=== PATIENT | female | born 1955 | race Caucasian/White ===

== ENCOUNTER → 2020-01-01 13:18 | Outpatient (BNVA) | payer MEDICARE, SELFPAY | PROVIDERS: Family Provider Emergency Medicine; PCP Family Medicine; Visit Provider Specialist | DX: S82.132A Displaced fracture of medial condyle of left tibia, initial encounter for closed fracture (principal); Z46.89 Encounter for fitting and adjustment of other specified devices; S82.142D Displaced bicondylar fracture of left tibia, subsequent encounter for closed fracture with routine healing; X58.XXXD Exposure to other specified factors, subsequent encounter | CPT/HCPCS: 73562; 87635; 97760; L1832 ==

== ENCOUNTER 2020-01-01 15:55 | Outpatient (CLI) | payer MEDICARE, SELFPAY | END 2020-01-01 15:56 | disposition home or self-care (01) | LOC: SPT 15:55 | PROVIDERS: Family Provider Emergency Medicine; PCP Family Medicine; Visit Provider Specialist | DX: Z46.89 Encounter for fitting and adjustment of other specified devices (principal); S82.142D Displaced bicondylar fracture of left tibia, subsequent encounter for closed fracture with routine healing; X58.XXXD Exposure to other specified factors, subsequent encounter | CPT/HCPCS: 87635; 97760; L1832 ==

== ENCOUNTER 2020-01-06 11:18 | Inpatient (IN) | payer MEDICARE, OTHER, SELFPAY ==
[2020-01-05 13:18] VITALS: BMI 29.7
[2020-01-06] VITALS (15 sets, daily range): BP systolic 134–197; BP diastolic 69–92; PULSE 60–86; RESP 14–21; TEMP 36.4–37.1; O2SAT 92–100
--- NOTE | 2020-01-06 | SCC_ITS ---
Procedure Done: Open reduction internal fixation left tibial plateau fracture utilizing the [place] 2 hole proximal lateral plate for a tibial plateau fracture supplemented with Hydroset, 15 cc 223.9 seconds of fluoroscopic guidance, for a cumulative dose of 9.37 mGy, was provided to Dr. Malik by the radiology department. C-arm images of the LEFT knee were saved for the patient's permanent record. [facility]
--- NOTE | 2020-01-06 | XR_ITS ---
WS: [id number] INTRAOPERATIVE TECHNIQUE: 3 Spot fluoroscopic images for intraoperative purposes. FLUOROSCOPY TIME: 223.9 seconds CLINICAL INFORMATION: SELAM PICS FINDINGS: Intraoperative changes plate and screw fixation involving the proximal tibia. Hardware appears in goo d position. Normal alignment. XR/XR knee LT 1-2V 38670 IMPRESSION: Images obtained for intraoperative purposes.
--- NOTE | 2020-01-06 11:54 | P.HPUD_ITS ---
Surgery/Procedure H&P Update DATE OF PROCEDURE: January 06, 2020 DATE H&P PERFORMED: 01/01/20 H&P UPDATE INFORMATION: I have reviewed H&P completed within last 30 days, I have examined patient prior to procedure, No changes to prior documentation and H&P is in [facility] EMR on date indicated PREOP DIAGNOSIS: Left tibial plateau fracture PLANNED PROCEDURE: Operation Date: 01/06/20 12:45 Proposed Procedures p ORIF Tibial Plateau 18409 S82.142A(Left) - La Malik MD Related Problem List Diagnoses (1) Tibial plateau fracture, left: Qualifiers: Encounter type: initial encounter Fracture type: closed Qualified Code(s): S82.142A - Displaced bicondylar fracture of left tibia, initial encounter for closed fracture
[2020-01-06] MEDS: CELEcoxib 200 mg Capsule 400 MG PO (12:06)
[2020-01-06] MEDS: sodium chloride 0.9% 1,000 ML 30 ML IV (12:07)
[2020-01-06 12:15] LABS: Glucose Point of Care 128 mg/dL (70-110)
--- NOTE | 2020-01-06 12:32 | ANES.PREANE2 ---
Pre-Anesthetic Assessment Pre-Anesthetic Assessment: Height/Weight: Height 1.52 m Weight 68.946 kg Temp Pulse Resp BP Pulse Ox 98.5 F 63 20 H 197/92 98 01/06/20 11:37 01/06/20 11:37 01/06/20 11:37 01/06/20 11:37 01/06/20 11:37 Preop Diagnosis: Left tibial plateau fracture Proposed Procedure: Operation Date: 01/06/20 12:45 Proposed Procedures p ORIF Tibial Plateau 48646 S82.142A(Left) - La Malik MD Familial anesthetic complications: none Was Beta Matias taken within 24 hours: Yes Last intake: Intake Last Liquid Date 01/06/20 Last Liquid Time 08:00 Last Solid Date 01/05/20 Last Solid Time 21:30 Social: Social History: No alcohol and No tobacco Exam: Pre-Anes Outpt Exam: alert, oriented x 3, clear to auscultation bilaterally and regular rate & rhythm Airway: Cervical ROM: WNL MP: 4 Dentition: Other (missing teeth) CV/HEM: CV/HEM: HTN Metabolic: Metabolic: DM and Hyperlipidemia Anesthetic Plan: ASA status: 2 Anesthesia: General and Regional (specify below) Risk of > 500 ml blood loss (7ml/kg in children): No Meds/Allergies Current Medications: Current Medications Generic Name Dose Route Start Last Admin Trade Name Freq PRN Reason Stop Dose Admin Sodium Chloride 1,000 mls @ 30 ml s/hr 01/06/20 11:30 01/06/20 12:07 Sodium Chloride 0.9% IV 01/07/20 11:29 30 mls/hr .Q24H JONH Administration Data Anesthesia Other Labs: Laboratory Results - last 48 hr 01/06/20 12:11 POC Glucose 128 Cardiac Studies: No Data to Display
[2020-01-06 12:45] LABS: Add Urine Microscopic? NO
[2020-01-06] MEDS: midazolam 1 mg/mL INJ 2 mL 2 MG IVP (12:47)
[2020-01-06 12:51] LABS: Basophils # 0.1 10^3/uL (0.0-0.1); Basophils % 0.8 %; Eosinophils # 0.2 10^3/uL (0.0-0.8); Eosinophils % 1.8 %; Hematocrit 35.8 % (37.0-47.0); Hemoglobin 11.4 g/dL (11.5-15.3); Lymphocytes # 2.1 10^3/uL (0.8-4.8); Lymphocytes % 17.8 %; Mean Corpuscular HGB Conc 31.8 g/dL (30.0-36.0); Mean Corpuscular Hemoglobin 30.7 pg (28.0-34.0); Mean Corpuscular Volume 96.5 fL (81-99); Mean Platelet Volume 10.4 fL (7.4-10.4); Monocytes % 8.2 %; Neutrophils # 8.24 10^3/uL (1.8-7.7); Neutrophils % 70.6 %; Nucleated Red Blood Cells % 0 %; Platelet Count 440 10^3/cmm (130-400); Red Blood Count 3.71 10^6/uL (4.1-5.3); Red Cell Distribution Width 13.4 % (12.1-15.1); White Blood Count 11.7 10^3/uL (4.0-10.0)
--- NOTE | 2020-01-06 12:59 | ANES.PROC ---
Anesthesia Procedures Procedure/Date: 01/06/20 Nerve Block ^: Nerve Block 1: Main Anesthesia: general anesthesia Time Out Performed: Yes Consent: requested by attending/covering physician, from patient, risks and benefits reviewed and patient agrees to proceed Nerve block location: femoral (L) Anesthesia monitors applied: pulse oximetry, EKG, BP cuff and oxygen Nerve block position: supine Anesthetic Used: ropivicaine 0.5% and with decadron (4 mg) Amount of anesthesia used (mL): 30 Ultrasound used to: recognize landmarks Nerve Stimulator Used?: No Interscalene/Femoral BLK: 4 stimuplex 21 g needle used for position and inplane approach, visualize local anesthetic spread and no vascular puncture identified Injection: neg aspiration of heme Patient Tolerated Procedure: well and no complications Complications: none
[2020-01-06 13:00] LABS: Urine Appearance Clear (CLEAR); Urine Color Yellow (Yellow)
[2020-01-06 13:01] LABS: Bilirubin Urine Neg (Negative); Blood Urine Neg (Negative); Glucose Urine UA Norm (Normal); Ketones Urine Negative (Negative); Leukocyte Esterase Urine Negative (Negative); Nitrate Urine Negative (Negative); Protein Urine Neg (Negative); Specific Gravity, Urine 1.005 (1.005-1.030); Sulfosalicylic Acid Urine Negative (Negative); Urobilinogen Urine Norm (Negative)
[2020-01-06 13:09] LABS: Alanine Aminotransferase 41 U/L (0-33); Albumin Level 4.4 g/dL (3.5-5.2); Alkaline Phosphatase 89 IU/L (35-105); Aspartate Amino Transferase 32 U/L (0-32); Blood Urea Nitrogen 19 mg/dL (8-23); Calcium 9.7 mg/dL (8.5-10.5); Carbon Dioxide 29 mmol/L (22-29); Chloride 97 mmol/L (98-107); Creatinine Clr Calc Pharmacy 60.7378; Globulin 2.9 g/dL (1.3-4.6); Glomerular Filtration Rate 100.3 mL/min (90-130); Glucose 143 mg/dL (65-115); Osmolality Calculated 293 mOsm/kg (285-295); Sodium 139 mmol/L (136-145); Total Bilirubin 0.6 mg/dL (0.15-1.2); Total Protein 7.3 g/dL (6.6-8.7)
[2020-01-06] MEDS: ceFAZolin 1,000 mg SDV 1000 MG IRRIGATION (14:52)
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
[2020-01-06] MEDS: fentaNYL 50 mcg/mL INJ 2mL IVP ×2 (16:36→16:41)
--- NOTE | 2020-01-06 16:42 | SUR.PHASEI ---
1642 PT HAS SENSATION/MOVEMENT TO L. FOOT, PEDAL PULSE PALPATED, CAP REFILL <3 SEC
--- NOTE | 2020-01-06 16:45 | PM.PACU ---
PACU note Post-Anesthesia Exam: awake and vital signs stable Disposition: admitted
[2020-01-06] MEDS: oxyCODONE 5 mg IR Tab/Cap PO (17:33)
[2020-01-06] MEDS: docusate sodium 100 mg Capsule PO (17:34)
--- NOTE | 2020-01-06 18:25 | PC.NURSE ---
SUMMARY PATIENT HAS DONE WELL SINCE ARRIVING TO THE FLOOR. THIS NURSE ADMINISTERED 10MG OF OXY IR AND A DOCUSATE CAPSULE. GOOD NEUROVASCULAR CHECKS. DRESSING C/D/I. DISCHARGE ORDERS REVIEWED. PATIENT HAD NO FURTHER QUESTIONS. SON WAS CONTACTED TO GAS APPLIANCE INSTALLER MEDICATIONS AND HAS JUST ARRIVED TO GAS APPLIANCE INSTALLER PATIENT.
== END 2020-01-06 18:29 | disposition home or self-care (01) | DRG 494 ==
PROVIDERS: Admitting Provider Specialist; PCP Physician Assistant Medical; Visit Provider Specialist
PROC: 0QSH04Z Reposition Left Tibia with Internal Fixation Device, Open Approach (ICD-10-PCS; principal; 2020-01-06 12:45)
DX: S82.142A Displaced bicondylar fracture of left tibia, initial encounter for closed fracture (principal); I10 Essential (primary) hypertension; E11.9 Type 2 diabetes mellitus without complications; E78.5 Hyperlipidemia, unspecified; V43.52XA Car driver injured in collision with other type car in traffic accident, initial encounter; Y92.89 Other specified places as the place of occurrence of the external cause
CPT/HCPCS: 12345; 36416; 73560; 76000; 80053; 81003; 82962; 85025; C1713; J0131; J0690; J1100; J2250; J2405; J2704; J2710; J2795; J3010; J3490; J7030

== ENCOUNTER → 2020-01-28 09:02 | Outpatient (BNVA) | payer MEDICARE, OTHER, SELFPAY | PROVIDERS: PCP Physician Assistant Medical; Visit Provider Specialist | DX: S82.142A Displaced bicondylar fracture of left tibia, initial encounter for closed fracture (principal); X58.XXXA Exposure to other specified factors, initial encounter | CPT/HCPCS: 73562 ==

== ENCOUNTER → 2020-02-18 10:06 | Outpatient (BNVA) | payer MEDICARE, OTHER, SELFPAY | PROVIDERS: PCP Physician Assistant Medical; Visit Provider Specialist | DX: S82.142A Displaced bicondylar fracture of left tibia, initial encounter for closed fracture (principal); X58.XXXA Exposure to other specified factors, initial encounter | CPT/HCPCS: 73562 ==

== ENCOUNTER → 2020-03-10 08:17 | Outpatient (BNVA) | payer MEDICARE, OTHER, SELFPAY | PROVIDERS: PCP Physician Assistant Medical; Visit Provider Specialist | DX: S82.142A Displaced bicondylar fracture of left tibia, initial encounter for closed fracture (principal); X58.XXXA Exposure to other specified factors, initial encounter; Z46.89 Encounter for fitting and adjustment of other specified devices; S82.142D Displaced bicondylar fracture of left tibia, subsequent encounter for closed fracture with routine healing; X58.XXXD Exposure to other specified factors, subsequent encounter | CPT/HCPCS: 73560; 73565; 97760; L1812 ==

== ENCOUNTER 2020-03-10 09:57 | Outpatient (CLI) | payer MEDICARE, OTHER, SELFPAY | END 2020-03-10 09:58 | disposition home or self-care (01) | LOC: SPT 09:58 | PROVIDERS: PCP Physician Assistant Medical; Visit Provider Specialist | DX: Z46.89 Encounter for fitting and adjustment of other specified devices (principal); S82.142D Displaced bicondylar fracture of left tibia, subsequent encounter for closed fracture with routine healing; X58.XXXD Exposure to other specified factors, subsequent encounter | CPT/HCPCS: 97760; L1812 ==

== ENCOUNTER → 2020-04-21 08:01 | Outpatient (BNVA) | payer MEDICARE, OTHER, SELFPAY | PROVIDERS: PCP Physician Assistant Medical; Visit Provider Specialist | DX: S82.142A Displaced bicondylar fracture of left tibia, initial encounter for closed fracture (principal); X58.XXXA Exposure to other specified factors, initial encounter | CPT/HCPCS: 73560; 73565 ==

== ENCOUNTER → 2020-07-28 10:14 | Outpatient (BNVA) | payer MEDICARE, OTHER, SELFPAY | PROVIDERS: PCP Physician Assistant Medical; Visit Provider Specialist | DX: S82.142D Displaced bicondylar fracture of left tibia, subsequent encounter for closed fracture with routine healing; M70.51 Other bursitis of knee, right knee; M70.52 Other bursitis of knee, left knee; V03.90XD Pedestrian on foot injured in collision with car, pick-up truck or van, unspecified whether traffic or nontraffic accident, subsequent encounter | CPT/HCPCS: 73560; 73565 ==

== ENCOUNTER → 2021-01-26 15:00 | Outpatient (BNVA) | payer MEDICARE, OTHER, SELFPAY | PROVIDERS: PCP Physician Assistant Medical; Referring Provider Nurse Practitioner Family; Visit Provider Specialist | DX: M17.11 Unilateral primary osteoarthritis, right knee (principal); M25.561 Pain in right knee | CPT/HCPCS: 73560; 73565 ==

== ENCOUNTER → 2021-02-24 14:11 | Outpatient (BNVA) | payer MEDICARE, OTHER, SELFPAY | PROVIDERS: PCP Physician Assistant Medical; Visit Provider Specialist | DX: M17.11 Unilateral primary osteoarthritis, right knee (principal); Z20.822 Contact with and (suspected) exposure to COVID-19 | CPT/HCPCS: 87635 ==

== ENCOUNTER 2021-03-01 15:38 | Observation (INO) | payer MEDICARE, SELFPAY ==
[2021-02-25 12:34] VITALS: BMI 27.9
--- NOTE | 2021-02-25 12:41 | ECG_ITS ---
[facility] Test Date: 2021-02-25 Pat Name: Rosette Harrington Department: Room: Gender: Female Digital Sales Director: : 1955 Requested By: Maty Norris Order Number: [id number] Wolfgang MD: Krystian Munguia M.D. Measurements Intervals [place] Rate: 66 P: 29 VA: 198 QRS: 9 QRSD: 88 T: 63 QT: 398 QTc: 418 Interpretive Statements SINUS RHYTHM NONSPECIFIC T-WAVE ABNORMALITY No previous ECG available for comparison Electronically Signed On 02-25-2021 19:49:05 ENVIRONMENTAL CONSERVATION OFFICER by Krystian Munguia M.D. [id number]
--- NOTE | 2021-02-25 13:00 | ANES.PREANE2 ---
Pre-Anesthetic Assessment Pre-Anesthetic Assessment: Height/Weight: Height 1.52 m Weight 64.864 kg Preop Diagnosis: Primary osteoarthritis right knee Proposed Procedure: Operation Date: 03/01/21 14:05 Proposed Procedures p Total Knee Arthroplasty 34919 M17.10(Right) - La Malik MD Familial anesthetic complications: None Social: Social History: No alcohol and No tobacco Exam: Pre-Anes Outpt Exam: alert, oriented x 3, clear to auscultation bilaterally and regular rate & rhythm Airway: MP: 2 Dentition: Other (missing) CV/HEM: CV/HEM: HTN GI: GI: GERD Metabolic: Metabolic: DM and Hyperlipidemia Musc/skel: Musc/skel: OA/DJD Anesthetic Plan: ASA status: 2 Anesthesia: Eval. for regional block and Regional (specify below) Other: spinal + adductor Risk of > 500 ml blood loss (7ml/kg in children): Yes, adequate IV access and fluids planned PFSH Anesthesia PFSH: Medical History Hypercholesteremia Hypertension Surgical History History of hysterectomy Social History Smoking and tobacco status: never smoked Data Anesthesia Cardiac Studies: No Data to Display
[2021-02-25 13:24] LABS: Basophils # 0.1 10^3/uL (0.0-0.1); Basophils % 0.7 %; Eosinophils # 0.3 10^3/uL (0.0-0.8); Eosinophils % 2.6 %; Hemoglobin 12.5 g/dL (11.5-15.3); Lymphocytes # 2.2 10^3/uL (0.8-4.8); Lymphocytes % 21.5 %; Mean Corpuscular HGB Conc 32.9 g/dL (30.0-36.0); Mean Corpuscular Hemoglobin 30.6 pg (28.0-34.0); Mean Corpuscular Volume 93.1 fl (81-99); Mean Platelet Volume 10.7 fL (7.4-10.4); Monocytes # 0.9 10^3/uL (0.2-0.9); Monocytes % 9.1 %; Neutrophils # 6.84 10^3/uL (1.8-7.7); Neutrophils % 65.8 %; Nucleated Red Blood Cells % 0 %; Platelet Count 358 10^3/cmm (130-400); Red Blood Count 4.08 10^6/uL (4.1-5.3); Red Cell Distribution Width 13.2 % (12.1-15.1); White Blood Count 10.4 10^3/uL (4.0-10.0)
[2021-02-25 13:49] LABS: Protein Urine Neg (Negative); Urine Appearance Clear (CLEAR); Urine Color Yellow (Yellow); pH Urine 5 (5-7)
[2021-02-25 13:53] LABS: Glucose Urine UA Norm (Normal); Ketones Urine Negative (Negative)
[2021-02-25 13:54] LABS: Add Urine Microscopic? YES; Alanine Aminotransferase 26 U/L (0-33); Albumin Level 4.4 g/dL (3.5-5.2); Alkaline Phosphatase 108 IU/L (35-105); Anion Gap 18.2 (5-19); Aspartate Amino Transferase 20 U/L (0-32); Bilirubin Urine 1+ (Negative); Blood Urea Nitrogen 23 mg/dL (8-23); Blood Urine Neg (Negative); Calcium 8.4 mg/dL (8.5-10.5); Carbon Dioxide 24 mmol/L (22-29); Chloride 99 mmol/L (98-107); Creatinine Clr Calc Pharmacy 58.1449; Glucose 181 mg/dL (65-115); Leukocyte Esterase Urine 2+ (Negative); Nitrate Urine Negative (Negative); Osmolality Calculated 294 mOsm/kg (285-295); Potassium 3.2 mmol/L (3.5-5.1); RBC Urine 0-4 /hpf (0-2); Sodium 138 mmol/L (136-145); Total Bilirubin 0.2 mg/dL (0.15-1.2); Total Protein 7.4 g/dL (6.6-8.7); Urobilinogen Urine Norm (Negative)
[2021-02-25 13:55] LABS: WBC Urine 25-40 /hpf (0-5)
[2021-02-25 13:59] LABS: Add Urine Culture? Yes
[2021-03-01] VITALS (23 sets, daily range): BP systolic 124–196; BP diastolic 71–99; PULSE 56–77; RESP 15–20; TEMP 36.6–37.1; O2SAT 92–98
[2021-03-01 09:15] LABS: Glucose Point of Care 133 mg/dL (70-110)
[2021-03-01] MEDS: acetaminophen 1,000 MG/100 ML PIGGYBACK 400 MG IV ×2 (09:24→17:39)
[2021-03-01] MEDS: sodium chloride 0.9% 1,000 ML 30 ML IV (09:24)
[2021-03-01] MEDS: CELEcoxib 200 mg Capsule 400 MG PO (09:36)
--- NOTE | 2021-03-01 09:38 | W.PM.OPSUD ---
Surgery/Procedure H&P Update DATE OF PROCEDURE: March 01, 2021 DATE H&P PERFORMED: 02/23/21 H&P UPDATE INFORMATION: I have reviewed H&P completed within last 30 days, I have examined patient prior to procedure, No changes to prior documentation and H&P is in [facility] EMR on date indicated PREOP DIAGNOSIS: Osteoarthritis Right Knee PLANNED PROCEDURE: Operation Date: 03/01/21 10:30 Proposed Procedures p Total Knee Arthroplasty 89232 M17.10(Right) - La Malik MD Related Problem List Diagnoses (1) Primary osteoarthritis of right knee:
--- NOTE | 2021-03-01 10:17 | P.ANESUD_ITS ---
Pre-Anesthetic Update Pre-Anesthetic Assessment: Date of Surgery/Procedure: 03/01/21 Preop Marily gnosis: Osteoarthritis Right Knee Proposed Procedure: Operation Date: 03/01/21 10:30 Proposed Procedures p Total Knee Arthroplasty 26957 M17.10(Right) - La Malik MD Any changes to Pre-Anesthetic Assessment?: No Last Intake: Intake Last Liquid Date 02/28/21 Last Liquid Time 21:00 Last Solid Date 02/28/21 Last Solid Time 20:00 Labs Last 48hrs: Laboratory Results - last 48 hr 03/01/21 09:10 POC Glucose 133 H Vitals: Temperature 98.0 F 03/01/21 09:18 Temperature Source Temporal Artery S can 03/01/21 09:18 Pulse Rate 65 03/01/21 09:18 Respiratory Rate 18 03/01/21 09:18 Blood Pressure 196/99 03/01/21 09:18 Blood Pressure Jina n 131 03/01/21 09:18 Pulse Oximetry 97 03/01/21 09:18 Oxygen Delivery Me thod 03/01/21 09:18 Exam: Pre-Anes Outpt Exam: alert, oriented x 3, clear to auscultation bilaterally and regular rate & rhythm Other Pertinent Information: Other Pertinent Information: SAB with adductor blk Cardiac Studies: No Data to Display
--- NOTE | 2021-03-01 10:57 | SUR.OPER ---
BLOCK WAS STARTED AT 1039 AND COMPLETED AT 1040.
[2021-03-01] MEDS: vancomycin 1,000 MG SDV 1000 MG XX (11:22)
[2021-03-01] MEDS: ceFAZolin 1,000 mg SDV 2000 MG IRRIGATION (11:22)
--- NOTE | 2021-03-01 12:44 | ANES.PROC ---
Anesthesia Procedures Procedure/Date: 03/01/21 Nerve Block ^: Nerve Block 1: Main Anesthesia: spinal anesthesia block Time Out Performed: Yes Consent: requested by attending/covering physician, from patient, risks and benefits reviewed and patient agrees to proceed Nerve block location: adductor canal (right) Anesthesia monitors applied: pulse oximetry, EKG, BP cuff and oxygen Nerve block position: supine Anesthetic Used: ropivicaine 0.5% Amount of anesthesia used (mL): 20 Ultrasound used to: recognize landmarks Nerve Stimulator Used?: No Interscalene/Femoral BLK: 4 stimuplex 21 g needle used for position and inplane approach and visualize local anesthetic spread Injection: neg aspiration of heme Patient Tolerated Procedure: well Complications: none
--- NOTE | 2021-03-01 12:46 | P.OP_ITS ---
Operative Report Date of procedure: March 01, 2021 Pre-op Diagnosis: Osteoarthritis Right Knee Post-op diagnosis: same Post-op Findings: Severe degenerative osteoarthritis involving the medial compartment Procedure Done: Right total knee arthroplasty Implants: The [place] total knee system with a size 2 triathlon beaded posterior stabilized femur right, a triathlon titanium tibial component size 2 beaded, a triathlon X3 posterior stabilized tibial bearing insert size 2 X 11 mm and a beaded triathlon titanium asymmetric patella size 29 x 9 mm Specimens removed/disposition: Bone, disposed of Pathology: none sent Surgeon: La Malik Planned Giving Officer: [facility] chief technician Anesthesia: MAC (With spinal and supplemental region) Estimated blood loss (mL): 25 Tourniquet time (min): 76 Tourniquet time: At 250 mmHg IV fluids (mL): 1,000 Urine output (mL): 300 Complications: None Findings: Severe degenerative osteoarthritis primarily involving the medial compartment with slight flexion contracture Condition: stable Disposition: PACU (Then to floor for postoperative rehabilitation, pain management, and observation) Brief History: This 65-year-old woman presented with complaints of severe right knee pain secondary to severe osteoarthritic change primarily involving the medial compartment. This knee caused her difficulty with her activities of daily living. After discussion, she wished to proceed with total knee arthroplasty as conservative nonoperative management was not offering her the relief she needed for a good quality of life. The patient will be on the floor for postoperative rehab and observation as well as pain management. Postoperatively, we will plan for home health. Procedure: The patient was brought to the operating theater, and after undergoing adequate spinal anesthesia with regional block, ASA 3, the right lower extremity was prepped with Dura-Prep and draped in usual fashion following placement of a tourniquet high on the leg. The leg was then draped free. Following prepping and draping, the leg was exsanguinated, and the tourniquet was elevated to 250 mm Hg for a total tourniquet time of 76 minutes. Prior to elevation of the tourniquet, but following exposure of the site of surgery, a surgical pause was performed. At the time of the surgical pause, we confirmed the site and side of surgery. Additionally, we confirmed the appropriate and timely administration of preoperative antibiotics, Ancef 2 g and Transexemic acid 1 g. The availability of equipment was confirmed, and the patient's identity was verbalized as well. Following the surgical pause, an incision was made centering over the patella continuing proximally and distally as necessary to allow access to the knee joint. Dissection continued through skin and soft tissues using a scalpel. Hemostasis was obtained using electrocautery. The skin incision was followed by a median parapatellar arthrotomy. The leg was extended and the patella was everted. Following this, the leg was returned to flexed position. The distal femur was exposed and a drill hole was made in this for placement of the distal femoral jig. The distal femoral jig was set at 5? of valgus. The distal femoral cutting block was then placed in appropriate position, and an karrie wing was used to confirm an appropriate amount of distal femur would be resected. The distal femoral resection was accomplished with 8 mm of bone being resected distally. After the distal femoral resection had been accomplished, the femur was measured and it measured a size 2. Medial lateral dimension also measured a size 2. A size 2 femoral cutting block was placed in position, and we were then able to accomplish the anterior, posterior and chamfer cuts. This jig was then removed and the notch guide was placed in position. With the notch guide in appropriate position, the notch was excised including resection of the anterior and posterior cruciate ligaments. This notch was to allow for the posterior stabilized femoral component. At this point, the femur was prepared and attention was directed to the proximal tibia. The posterior knee retractor was placed along with medial and lateral re tractors. Further resection of the menisci was accomplished as we had better visualization. A complete meniscectomy was performed both medially and laterally with care being taken to protect the popliteus. Retractors were then placed so that the proximal tibia was well visualized. A drill hole was then made in the tibia for placement of the intramedullary guide. This guide was placed so that approximately 2 mm of bone would be resected from the medial tibial plateau, and this resulted in 4+ mm resected from the lateral tibial plateau. The intramedullary guide was utilized supplemented with an extramedullary guide to assure appropriate alignment for the proximal tibial resection. The proximal tibial jig was then evaluated, pinned in position, and the proximal tibial resection was accomplished without difficulty. The jig was removed, and the proximal tibia was measured. It measured a size 2. We then attempted a trial reduction with a size 2 by 9 mm insert. To better balance the knee, a slight medial release was accomplished, and trial reduction was accomplished with an 11 mm insert. With this, the femoral component was placed in position for the trial reduction, and the knee was placed through range of motion. With this, there was excellent stability with excellent varus-valgus alignment with appropriate patellar tracking. Extension was noted to be full as well. This was felt to be the appropriate size insert. There was full extension and flexion without lift off and the rotation of the tibia was marked. Alignment was checked from the hip to the ankle, and this was noted to be appropriate as well. Attention was then directed to the patella. The patella was measured with a caliper. We resected sufficient patella to leave approximately 14 mm of patella remaining. Measurements of the patella then indicated that a size asymmetric 29 mm x 9 mm was the appropriate patellar size. We then placed the jig to drill for the 3 pegs of the press-fit patella, and these drill holes were made without incident. A trial patella was then placed, and the knee was placed through range of motion. The patella was noted to track nicely without evidence of subluxation. The femur was prepared for a press-fit femur by drilling 2 holes for the femoral pegs. All trial components were subsequently removed. The tibial tray was then pinned into position, and we broached the tibia for the stem of the tibial component. Subsequently, 4 drill holes were made for placement of the press-fit tibia. This was accomplished without difficulty. Care was taken to assure appropriate rotation of the tibia as well as appropriate position on the proximal tibia. The tibial tray was completely seated on the proximal tibia. Following broaching, the tibial guide was removed, and all surfaces were copiously irrigated. The surfaces were then dried and a bone plug was placed into the distal femur. Exparel was also injected at this point. The Tritanium tibia was impacted into position. The beaded femur was then impacted into position in a cementless fashion. The tibial insert was placed. The patella was pressed into position with a patellar clamp. The knee was irrigated with 20 mL of Betadine and 500 mL of normal saline, and this was allowed to remain in the knee for 3-4 minutes. The knee was then copiously irrigated and suctioned dry. Attention was then directed to closure. Closure was accomplished with 0 Vicryl in the fascial tissues. Following this, a 2-0 Monocryl was used in the subcutaneous tissues, and the skin was closed with skin marcial. A sterile dressing was then placed consisting of dermabond Prineo, OpSite, sterile soft roll, and an John Paul wrap. The patient was returned the Recovery Room in a satisfactory condition. X-rays were obtained there. The patient will be discharged to the floor for postoperative rehabilitation and pain management. Associated Problem List Diagnoses (1) Primary osteoarthritis of right knee: (2) Status post total right knee replacement not using cement:
--- NOTE | 2021-03-01 12:58 | PC.NURSE ---
SPINAL LEVEL BELOW T 10. ABLE TO MOVE RIGHT LEG. FOOT PUMP ON RIGHT FOOT AND WORKING. CLEAR YELLOW URINE IN TUBING AND BAG. X RAY BEING DONE OF OPERATIVE SITE.
--- NOTE | 2021-03-01 12:59 | XR_ITS ---
WS: [id number] Exam: XR knee RT 1-2V [id number] Date/Time of Exam: 03/01/2021 1:02 PM Reason For Exam: Right total knee arthroplasty A total knee prosthesis has been placed and is in excellent position. Postoperative changes in the ad jacent soft tissues. Anterior surgical skin clips are seen. XR/XR knee RT 1-2V [id number] IMPRESSION: 1. Total knee replacement in excellent position.
--- NOTE | 2021-03-01 13:24 | PC.NURSE ---
FOOT PUMPS UMA NOW
[2021-03-01] MEDS: ondansetron 2 mg/ML SDV 2 mL 4 MG IVP (13:41)
[2021-03-01] MEDS: diphenhydrAMINE 50 mg/mL SDV 1mL 12.5 MG IVP (13:54)
--- NOTE | 2021-03-01 14:06 | PC.NURSE ---
REPORT GIVEN TO ANNMARIE MCCLENDON IN OPS, PT MOVED TO ROOM 1 OPS VIA STRETCHER AND CARE TURNED OVER.
--- NOTE | 2021-03-01 14:44 | ANE.PACU2 ---
Inpatient post-anesthesia follow up: Airway intact: Yes Vital signs: Temperature 97.9 F Pulse Rate 58 Respiratory Rate 18 Blood Pressure 128/71 Pulse Oximetry 94 Oxygen Delivery Me thod Room Air Oxygen Flow Rate Fraction of Inspir ed Oxygen Hydration adequate: Yes Nausea and vomiting: No Pain level: 2 Mental status: Baseline
[2021-03-01] MEDS: iron polysaccharide complex 150 mg Capsule PO (17:37)
[2021-03-01] MEDS: metformin 500 mg Tablet 1000 MG PO (17:37)
[2021-03-01] MEDS: oxyCODONE 5 mg IR Tab/Cap PO (17:37)
[2021-03-01] MEDS: atorvastatin 40 mg Tablet PO (17:37)
[2021-03-01] MEDS: calcium carbonate 500 mg Chew Tablet 1000 MG PO (17:37)
[2021-03-01] MEDS: chlorhexidine gluconate 0.12% Btl 473 mL 30 ML MUCOUS MEM ×2 (17:38→21:55)
[2021-03-01] MEDS: mupirocin oint 22 gm 1 APPLIC NASAL (17:39)
[2021-03-01] MEDS: sennosides-docusate Tablet 2 TAB PO (17:40)
[2021-03-01] MEDS: cyclobenzaprine 10 mg Tablet 5 MG PO (21:55)
[2021-03-01] MEDS: CELEcoxib 200 mg Capsule PO (21:55)
[2021-03-02] VITALS (8 sets, daily range): BP systolic 164–191; BP diastolic 77–93; PULSE 58–75; RESP 16–20; TEMP 36.7–37; O2SAT 94–97
[2021-03-02] MEDS: acetaminophen 1,000 MG/100 ML PIGGYBACK 400 MG IV ×2 (01:52→08:09)
[2021-03-02 05:33] LABS: Basophils # 0.1 10^3/uL (0.0-0.1); Basophils % 0.4 %; Eosinophils # 0.1 10^3/uL (0.0-0.8); Hemoglobin 11.3 g/dL (11.5-15.3); Lymphocytes # 1.3 10^3/uL (0.8-4.8); Lymphocytes % 9.6 %; Mean Corpuscular HGB Conc 32.3 g/dL (30.0-36.0); Mean Corpuscular Hemoglobin 30.5 pg (28.0-34.0); Mean Corpuscular Volume 94.6 fl (81-99); Mean Platelet Volume 10.8 fL (7.4-10.4); Monocytes # 1.2 10^3/uL (0.2-0.9); Monocytes % 8.7 %; Neutrophils # 10.74 10^3/uL (1.8-7.7); Nucleated Red Blood Cells % 0 %; Platelet Count 339 10^3/cmm (130-400); Red Cell Distribution Width 13.4 % (12.1-15.1); White Blood Count 13.4 10^3/uL (4.0-10.0)
[2021-03-02 05:55] LABS: Anion Gap 16.7 (5-19); Blood Urea Nitrogen 10 mg/dL (8-23); Calcium 8.3 mg/dL (8.5-10.5); Carbon Dioxide 24 mmol/L (22-29); Chloride 99 mmol/L (98-107); Creatinine Clr Calc Pharmacy 58.1449; Glucose 161 mg/dL (65-115); Osmolality Calculated 285 mOsm/kg (285-295); Potassium 3.7 mmol/L (3.5-5.1); Sodium 136 mmol/L (136-145)
[2021-03-02] MEDS: multivitamin therapeutic Tablet 1 TAB PO (08:07)
[2021-03-02] MEDS: sennosides-docusate Tablet 2 TAB PO ×2 (08:07→17:45)
[2021-03-02] MEDS: citalopram 20 mg Tablet PO (08:07)
[2021-03-02] MEDS: pantoprazole DR 40 mg Tablet PO (08:07)
[2021-03-02] MEDS: CELEcoxib 200 mg Capsule PO ×2 (08:07→21:12)
[2021-03-02] MEDS: cholecalciferol (vitamin D3) 1,000 unit Tablet 1000 UNIT PO (08:07)
[2021-03-02] MEDS: aspirin 325 mg EC Tablet PO (08:07)
[2021-03-02] MEDS: oxyCODONE 5 mg IR Tab/Cap PO (08:07)
[2021-03-02] MEDS: iron polysaccharide complex 150 mg Capsule PO ×2 (08:08→17:47)
[2021-03-02] MEDS: hydroCHLOROthiazide 25 mg Tablet PO (08:08)
[2021-03-02] MEDS: atenolol 50 mg Tablet PO (08:08)
[2021-03-02] MEDS: calcium carbonate 500 mg Chew Tablet 1000 MG PO ×2 (08:08→17:45)
[2021-03-02] MEDS: lisinopril 20 mg Tablet 40 MG PO (08:08)
[2021-03-02] MEDS: amlodipine 10 mg Tablet PO (08:08)
[2021-03-02] MEDS: metformin 500 mg Tablet 1000 MG PO ×2 (08:08→17:46)
[2021-03-02] MEDS: chlorhexidine gluconate 0.12% Btl 473 mL 30 ML MUCOUS MEM ×2 (08:11→17:46)
--- NOTE | 2021-03-02 09:20 | PC.CHAP ---
Pastoral Care Encounter/Spiritual Assessment Type of Contact [] Declined customer sales service manager visit [] Patient/Family/Request visit [] Outpatient visit [] Follow-up visit [] Physician referral [] Code/Alert [x] Routine visit [] Staff referral [] Actively dying [] Patient sleeping [] Family support [] [] Out of room [] Palliative care [] [] Receiving care in room [] Pre-surgical visit [] Trauma [] Long length of stay [] ICU visit [] Other: Relational/Emotional Strength [] Patient feels connected with others/family/visitors/staff [] Distress [] Loneliness/isolation [] Abandonment Spirituality of Patient [x] Person of [place] [] Attends Pentecostalism of their [place] [x] Believes in Prayer [] Reads Bible or Methodist materials [] There are Spiritual issues to be addressed 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 Machine 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 Interventions [x] Prayer [] Active listening [] Non-anxious presence [] Spiritual/emotional support [] Crisis/trauma care [] Spiritual counseling [] Bereavement support [] Provided bereavement packet [] Provided Bible/devotional materials [] Provided toy/stuffed animal, coloring book to patient or family member [] Provided Communion [] Anointing/[place] [] Salvation []x Completed spiritual assessment [] Other: Impact on Illness or Injury [] Angry [] Fearful [] Anxious [] Often cries [] Exhaustion [] Unable to work [] Unable to attend roman catholic [] Unable to walk/stand [] Unable to read [] Unable to drive [] Unable to eat/drink [] Unable to sleep [] Unable to be with family [] Patient intubated [] Other: Summary Time spent with patient 5 min
[2021-03-02] MEDS: ondansetron 2 mg/ML SDV 2 mL 4 MG IVP ×2 (10:42→17:45)
--- NOTE | 2021-03-02 11:12 | PC.OT ---
OT orders received. Patient experiencing n/v this morning. RN states patient is not appropriate for therapy at this time. Will attempt OT evaluation this afternoon.
--- NOTE | 2021-03-02 12:20 | P.PN_ITS ---
Subjective Subjective: Interval history: The patient was seen early afternoon on the , postop day 1 after her surgical intervention. She was quite nauseated and unable to participate aggressively with physical therapy. It was felt that she would not be overly safe to be discharged home. Therefore, the decision was made to delay her discharge for another day so that she could participate more aggressively with physical therapy. Vitals/I&O/Wt Last Vital Signs Temp 98.3 F 03/03/21 10:53 Pulse 66 03/03/21 10:53 Resp 16 03/03/21 10:53 BP 161/79 03/03/21 10:53 Pulse Ox 94 03/03/21 10:53 03/03/21 03/03/21 03/03/21 06:59 14:59 22:59 Output Total 610 / 1410 300 / 300 Balance -610 / -810 -300 / -300 Physical Exam Const: COMMON NORMALS: no acute distress, average body habitus, patient oriented x3 and alert GENERAL APPEARANCE: cooperative and comfortable ORIENTATION/CONSCIOUSNESS: Yes awake HENMT: COMMON NORMALS: normocephalic and atraumatic HEAD & SCALP: normocephalic and atraumatic Eye: GENERAL EYE: appearance normal, both eyes and all related structures Chest: COMMONS NORMALS: normal inspection of the chest Resp: COMMON NORMALS: normal respiratory effort EFFORT & INSPECTION: Yes able to speak in complete sentences and Yes symmetric chest movement Extremity: RIGHT LOWER EXTREMITY: Yes knee joint (Dressing is removed except for clear Derm and Telfa) Right knee: Yes inspection (No swelling in the calf.), Yes palpation (Minimal tenderness.), Yes ROM (Not evaluated.) and Yes neurovascular exam (Intact with no evidence of DVT.) Neuro: COMMON NORMALS: patient oriented x3 SENSORIUM/ORIENTATION: Yes alert Psych: COMMON NORMALS: mental status grossly normal APPEARANCE: Yes grossly normal ATTITUDE: Yes calm and Yes engaged ATTENTION/CONCENTRATION: Yes attention grossly intact Skin: COMMON NORMALS: no rashes or lesions noted GENERAL SKIN EXAM: no rashes or lesions noted Urinary Catheter Management^: F: Cath Placed During This Visit: yes, but has since been removed by the nurse Reason for Continuing Indwelling Catheter: Perioperative Use in Selected Surgeries Urinary Catheter Date of Insertion: 03/01/21 Urinary Catheter Time of Insertion: 10:40 Date Urinary Catheter Removed: 03/02/21 Time Urinary Catheter Discontinued: 06:15 Data : 03/02/21 04:41 03/02/21 04:41 A&P Assessment and plan (1) Primary osteoarthritis of right knee: Patient is status post right total knee arthroplasty. She is doing well, but on her first postoperative day, she had significant nausea and was unable to participate aggressively with therapy. The patient was therefore maintained in the hospital for an additional day for management of pain and nausea. It was not felt that she was safe to be discharged to home on the first postoperative day. Status: Acute (2) Status post total right knee replacement not using cement: Status: Acute Attestations Medical Necessity Statement*: Patient will require an additional midnight for postoperative nausea management. 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
--- NOTE | 2021-03-02 12:29 | PC.PHAR ---
PT STATES SHE TAKES CARE OF HER OWN MEDICATIONS-PT VERIFIED THE MEDICATIONS ENTERED
[2021-03-02] MEDS: HYDROcodone-acetaminophen 5-325 mg Tablet 1 TAB PO ×2 (13:50→17:46)
--- NOTE | 2021-03-02 15:59 | PC.OT ---
OT EVALUATION HELD TODAY DUE TO N/V; NURSE REQUESTED TO HOLD AT THIS TIME
[2021-03-02] MEDS: atorvastatin 40 mg Tablet PO (17:46)
--- NOTE | 2021-03-02 18:41 | PC.NURSE ---
PATIENT HASN'T FELT WELL TODAY. SHE HAS HAD NAUSEA MOST THE DAY. THIS NURSE ADMINISTERED ZOFRAN X2 AND DR. TAYLOR CHANGED PATIENT'S PAIN MEDICATIONS TO HYDROCODONE TO BETTER CONTROL PAIN. PATIENT HAS AMBULATED WELL WITH THERAPY. SHE IS ABLE TO GET UP WITH MINIMAL ASSISTANCE. GOOD URINE OUTPUT. MINIMAL PO INTAKE. SURGICAL DRESSING HAS MINIMAL DRAINAGE. CURRENTLY RESTING IN BED AT THIS TIME.
[2021-03-02] MEDS: cyclobenzaprine 10 mg Tablet 5 MG PO (21:12)
[2021-03-02] MEDS: metoclopramide 5 mg/mL SDV 2 mL 10 MG IV (21:59)
[2021-03-03] VITALS: BP 192/92; PULSE 92; RESP 18; TEMP 36.8; O2SAT 94
[2021-03-03] MEDS: ondansetron 2 mg/ML SDV 2 mL 4 MG IVP (00:13)
[2021-03-03] MEDS: HYDROcodone-acetaminophen 5-325 mg Tablet 1 TAB PO ×3 (00:16→12:21)
--- NOTE | 2021-03-03 00:16 | PC.NURSE ---
Nurse assisted pt to the bedside commode and back to bed. Vitals taken and pt noted to be hypertensive with BP of 192/92. Pt vomited in basin 200 mls. Pt care nurse Jaclyn notified. Nurse got patient a fresh ice pack for her right knee.
[2021-03-03] MEDS: acetaminophen 500 mg Tablet 1000 MG PO (01:48)
[2021-03-03 04:00] VITALS: BP 158/82; PULSE 68; RESP 16; TEMP 36.7; O2SAT 95
[2021-03-03 07:38] VITALS: BP 190/99; PULSE 77; RESP 16; TEMP 36.4; O2SAT 98
[2021-03-03] MEDS: sennosides-docusate Tablet 2 TAB PO (09:01)
[2021-03-03] MEDS: atenolol 50 mg Tablet PO (09:01)
[2021-03-03] MEDS: citalopram 20 mg Tablet PO (09:01)
[2021-03-03] MEDS: iron polysaccharide complex 150 mg Capsule PO (09:02)
[2021-03-03] MEDS: aspirin 325 mg EC Tablet PO (09:02)
[2021-03-03] MEDS: metformin 500 mg Tablet 1000 MG PO (09:02)
[2021-03-03] MEDS: pantoprazole DR 40 mg Tablet PO (09:02)
[2021-03-03] MEDS: cholecalciferol (vitamin D3) 1,000 unit Tablet 1000 UNIT PO (09:02)
[2021-03-03] MEDS: hydroCHLOROthiazide 25 mg Tablet PO (09:02)
[2021-03-03] MEDS: lisinopril 20 mg Tablet 40 MG PO (09:02)
[2021-03-03] MEDS: multivitamin therapeutic Tablet 1 TAB PO (09:02)
[2021-03-03] MEDS: calcium carbonate 500 mg Chew Tablet 1000 MG PO (09:02)
[2021-03-03] MEDS: CELEcoxib 200 mg Capsule PO (09:02)
[2021-03-03] MEDS: amlodipine 10 mg Tablet PO (09:16)
[2021-03-03] MEDS: chlorhexidine gluconate 0.12% Btl 473 mL 30 ML MUCOUS MEM ×2 (09:30→12:23)
[2021-03-03 10:53] VITALS: BP 161/79; PULSE 66; RESP 16; TEMP 36.8; O2SAT 94
--- NOTE | 2021-03-03 14:22 | PC.OT ---
OT orders received. Patient participated in OT screen, demonstrating independence with bed mobility, toileting and toilet transfers. Patient reported no concerns with return home upon discharge. Stated her granddaughter will be staying with her for a week and then she will be staying with her son during recovery. No further OT recommended this date.
--- NOTE | 2021-03-03 15:19 | PM.DCS ---
Discharge Providers Date of Admission: 03/01/21 15:38 Date of Discharge: March 03, 2021 Attending Provider at Admission: La Malik MD Attending Provider at Discharge: La Malik MD Primary Care Provider: Eyad Chavez Diagnoses at Discharge Discharge Diagnosis (1) Primary osteoarthritis of right knee: Status: Acute (2) Status post total right knee replacement not using cement: Status: Acute Permanent problem details: The [employer] total knee system with a size 2 triathlon beaded posterior stabilized femur right, a triathlon titanium tibial component size 2 beaded, a triathlon X3 posterior stabilized tibial bearing insert size 2 X 11 mm and a beaded triathlon titanium asymmetric patella size 29 x 9 mm Reason for Visit Reason for Visit: Right knee primary osteoarthritis Brief History: This 65-year-old woman presented with complaints of severe right knee pain secondary to severe osteoarthritic change primarily involving the medial compartment. This knee caused her difficulty with her activities of daily living. After discussion, she wished to proceed with total knee arthroplasty as conservative nonoperative management was not offering her the relief she needed for a good quality of life. The patient will be on the floor for postoperative rehab and observation as well as pain management. Postoperatively, we will plan for home health. Hospital Course Hospital Course This 65-year-old woman was admitted under observation status following same-day surgery for right total knee arthroplasty. She was seen on the first postoperative day, but she had significant nausea at the time she was evaluated. She was unable to participate aggressively with physical therapy, and it was felt that she was not safe for discharge to home. She therefore was maintained in the hospital 1 additional night to address her nausea and also her pain needs. On the second postoperative day, the patient was seen in the afternoon. Her nausea had resolved. She was tolerating oral pain medications. She felt safe to go home and had been arranged for home physical therapy. I was in agreement with this plan and therefore, she was discharged to home. Physical Exam Const: COMMON NORMALS: no acute distress, average body habitus, patient oriented x3 and alert GENERAL APPEARANCE: cooperative and comfortable ORIENTATION/CONSCIOUSNESS: Yes awake HENMT: COMMON NORMALS: normocephalic and atraumatic HEAD & SCALP: normocephalic and atraumatic Eye: GENERAL EYE: appearance normal, both eyes and all related structures Chest: COMMONS NORMALS: normal inspection of the chest Resp: COMMON NORMALS: normal respiratory effort EFFORT & INSPECTION: Yes able to speak in complete sentences and Yes symmetric chest movement Extremity: RIGHT LOWER EXTREMITY: Yes knee joint (Tegaderm and Telfa are in place.) Right knee: Yes inspection (Minimal to no swelling.), Yes palpation (No pain to palpation.), Yes ROM (Lacking full extension approximately 7 degrees, flexes to 60), Yes neurovascular exam (Intact distally with no evidence of DVT.) and Yes other (Able to straight leg raise independently.) Neuro: COMMON NORMALS: patient oriented x3 SENSORIUM/ORIENTATION: Yes alert Psych: COMMON NORMALS: mental status grossly normal APPEARANCE: Yes grossly normal ATTITUDE: Yes calm and Yes engaged ATTENTION/CONCENTRATION: Yes attention grossly intact Skin: COMMON NORMALS: no rashes or lesions noted GENERAL SKIN EXAM: no rashes or lesions noted Urinary Catheter Management^: F: Cath Placed During This Visit: yes, but has since been removed by the nurse Reason for Continuing Indwelling Catheter: Perioperative Use in Selected Surgeries Urinary Catheter Date of Insertion: 03/01/21 Urinary Catheter Time of Insertion: 10:40 Date Urinary Catheter Removed: 03/02/21 Time Urinary Catheter Discontinued: 06:15 Discharge Data Data Completed and Pending: Completed Studies During Hospitalization Category Date Time Status XR knee RT 1-2V 7 3560 Urgent Exams 03/01/21 12:59 Completed Vitals: Last Vital Signs Temp 98.3 F 03/03/21 10:53 Pulse 66 03/03/21 10:53 Resp 16 03/03/21 10:53 BP 161/79 03/03/21 10:53 Pulse Ox 94 03/03/21 10:53 Discharge Plan Discharge Patient Disposition: Home Health Service Condition: Stable Prescriptions: New celecoxib 200 mg Capsule 200 mg PO DAILY 30 Days Qty: 30 RF: 0 hydrocodone-acetaminophen 5-325 mg Tablet 1 tab PO Q4H PRN (Reason: Moderate Pain) 7 Days Qty: 40 RF: 0 acetaminophen 500 mg Tablet 500 mg PO Q8H 15 Days Qty: 0 RF: 0 aspirin 325 mg Tablet,Delayed Release (Dr/Ec) 325 mg PO DAILY 30 Days Qty: 30 RF: 0 Continued sulfamethoxazole-trimethoprim [Bactrim DS] 800-160 mg tablet 1 tab PO BID Qty: 20 RF: 0 citalopram 20 mg tablet 20 mg PO BEDTIME RF: 0 amlodipine 10 mg tablet 10 mg PO QAM RF: 0 metformin 1,000 mg tablet 1,000 mg PO BID RF: 0 hydrochlorothiazide 25 mg tablet 25 mg PO QAM RF: 0 lisinopril 40 mg tablet 40 mg PO QAM RF: 0 atenolol 50 mg tablet 50 mg PO QAM RF: 0 cyclobenzaprine 5 mg tablet 5 mg PO BEDTIME RF: 0 omeprazole 20 mg Tablet,Delayed Release (Dr/Ec) 20 mg PO BID RF: 0 atorvastatin 40 mg Tablet 40 mg PO QPM RF: 0 multivitamin Tablet 1 tab PO DAILY RF: 0 ketorolac 10 mg tablet 10 mg PO TID PRN (Reason: Pain) RF: 0 No Action (DME) HINGED KNEE BRACE See Rx Instructions .Route .MEDSUPPLY Qty: 1 RF: 0 Discharge Orders: Discharge Order (Routine); Ordered 03/03/21 Ordered By: La Malik Other Ambulatory Orders: DME: Walker (Order) Location: None Selected Ordered By: La aMlik Referrals: La Malik MD [Physician] - 03/14/21 9:00 am Discharge Diet: Advance as tolerated and Usual diet Discharge Activity: Increase activity as tolerated, Limit activity as instructed, Use walker/crutches as instructed and As per PT/OT instructions Activity Restrictions/Additional Instructions: Ice and elevation left lower extremity. Weight-bear as tolerated. Physical therapy for strength, weightbearing, and range of motion. Gait training. Maintain clear dressing, may change as needed or if there is drainage. Discharge Attestations Time Spent in Discharge Care*: greater than 30 min Specific Discharge Activities: educating patient, discussing with case loader operator/social workers/dc planners, documenting/other paperwork and evaluating patient/reviewing data Quality Metrics Clinical Quality Measures During this hospital stay, did patient experience: None Coding Level of Care Code Acute [facility] note Diagnoses Primary osteoarthritis of right knee M17.11 Status post total right knee replacement not using cement Z96.651
== END 2021-03-03 16:52 | disposition home health service (06) ==
LOC: MEDSURG 15:38
PROVIDERS: Admitting Provider Specialist; PCP Nurse Practitioner Family; Visit Provider Specialist
PROC: (CPT 27447; principal; 2021-03-01 10:15)
DX: M17.11 Unilateral primary osteoarthritis, right knee (principal); I10 Essential (primary) hypertension; K21.9 Gastro-esophageal reflux disease without esophagitis; E11.9 Type 2 diabetes mellitus without complications; E78.5 Hyperlipidemia, unspecified; E78.00 Pure hypercholesterolemia, unspecified; Z79.84 Long term (current) use of oral hypoglycemic drugs
CPT/HCPCS: 27447; 36415; 36416; 64447; 73560; 76942; 80048; 80053; 81001; 82962; 85025; 87086; 88112; 93005; 97110; 97116; 97161; C1776; C9290; G0378; J0690; J1200; J2405; J2704; J2765; J2795; J3010; J3370; J3490; J7030

== ENCOUNTER → 2021-03-14 09:08 | Outpatient (BNVA) | payer MEDICARE, SELFPAY | PROVIDERS: PCP Nurse Practitioner Family; Visit Provider Specialist | DX: Z96.651 Presence of right artificial knee joint (principal) | CPT/HCPCS: 73560; 73565 ==

== ENCOUNTER → 2021-04-11 08:20 | Outpatient (BNVA) | payer MEDICARE, SELFPAY | PROVIDERS: PCP Nurse Practitioner Family; Visit Provider Specialist | DX: Z96.651 Presence of right artificial knee joint (principal); Z98.890 Other specified postprocedural states; Z47.1 Aftercare following joint replacement surgery | CPT/HCPCS: 73560; 73565; 97760; L1830 ==

== ENCOUNTER 2021-04-11 13:17 | Outpatient (CLI) | payer MEDICARE, SELFPAY | END 2021-04-11 13:18 | disposition home or self-care (01) | LOC: SPT 13:17 | PROVIDERS: PCP Nurse Practitioner Family; Visit Provider Specialist | DX: Z47.1 Aftercare following joint replacement surgery (principal); Z96.651 Presence of right artificial knee joint | CPT/HCPCS: 97760; L1830 ==

== ENCOUNTER 2021-05-02 08:35 | Outpatient (CLI) | payer MEDICARE, SELFPAY ==
--- NOTE | 2021-05-02 08:46 | XR_ITS ---
WS: [id number] Exam: XR knees AP WB w RT lmt ORTH Date/Time of Exam: 05/02/2021 8:50 AM Reason For Exam: Z96.651 - Presence of right artificial knee joint Comparison 04/11/2021. A total knee replacement is noted on the right. No sign of fracture or loosening. No joint effusion n oted. No change since prior study. AP view the left knee shows plate and screw fixation involving an old fracture of the lateral tibial plateau. No evidence of hardware failure or malalignment. The appe arance is stable. XR/XR knees AP WB w RT lmt ORTH IMPRESSION: 1. Total right knee replacement in satisfactory position without complication. Stable.
== END 2021-05-02 08:36 | disposition home or self-care (01) ==
LOC: RAD 08:44
PROVIDERS: PCP Nurse Practitioner Family; Visit Provider Specialist
DX: Z96.651 Presence of right artificial knee joint (principal)
CPT/HCPCS: 73560; 73565

== ENCOUNTER → 2021-07-04 09:09 | Outpatient (BNVA) | payer MEDICARE, SELFPAY | PROVIDERS: PCP Nurse Practitioner Family; Visit Provider Specialist | DX: M24.561 Contracture, right knee (principal); Z96.651 Presence of right artificial knee joint | CPT/HCPCS: 73560; 73565 ==

== ENCOUNTER → 2022-01-02 09:34 | Outpatient (BNVA) | payer MEDICARE, SELFPAY | PROVIDERS: PCP Nurse Practitioner Family; Visit Provider Specialist | DX: Z96.651 Presence of right artificial knee joint (principal); S82.142S Displaced bicondylar fracture of left tibia, sequela; X58.XXXS Exposure to other specified factors, sequela | CPT/HCPCS: 73560; 73565; 99213 ==

== ENCOUNTER 2023-02-08 13:39 | Outpatient (CLI) | payer MEDICARE, SELFPAY ==
--- NOTE | 2023-02-08 13:45 | MM_ITS ---
WS: [id number] BILATERAL SCREENING DIGITAL TOMOSYNTHESIS MAMMOGRAM WITH CAD HISTORY: SCREENING COMPARISON: 09/16/2019 and 05/29/2018 Bilateral CC and MLO views with tomosynthesis and synthetic mammography submitted. Computer aided det ection analyzed. Breast composition: There are scattered areas of fibroglandular density. No suspicious masses, microc alcifications or architectural distortion. IMPRESSION: MM/[place] [id number] BI-RADS: 1-Negative FOLLOW UP: 1 Year Follow-up
== END 2023-02-08 13:40 | disposition home or self-care (01) ==
LOC: MOBLMAM 13:50
PROVIDERS: Visit Provider Registered Nurse
DX: Z12.31 Encounter for screening mammogram for malignant neoplasm of breast (principal)
CPT/HCPCS: 77063; 77067

== ENCOUNTER 2023-05-08 05:40 | Inpatient (IN) | payer MEDICARE, SELFPAY ==
[2023-05-08] VITALS (12 sets, daily range): BP systolic 125–185; BP diastolic 73–105; PULSE 74–86; RESP 14–27; TEMP 36.7–37.2; O2SAT 91–96; BMI 30.2; BMI 34.1
--- NOTE | 2023-05-08 | XR_ITS ---
WS: [id number] XR knee RT 1-2V [id number] REASON FOR EXAM: OR PICS FINDINGS: Lateral plate and screw fixation of comminuted supracondylar fracture associated with total right kne e joint replacement. Surgical appliances are intact and in proper position and alignment. Fracture fragments are in good position and alignment. IMPRESSION: Distal femoral fracture with fixation. No abnormality.
--- NOTE | 2023-05-08 | XR_ITS ---
WS: [id number] XR wrist RT 2V [id number] REASON FOR EXAM: OR PICS FINDINGS: Ventral plate and screw fixation of distal right radial metaphyseal fracture. Surgical appliances are intact and in proper position and alignment. Fracture fragments are in good position and alignment. IMPRESSION: Right wrist fracture with fixation. No abnormality.
--- NOTE | 2023-05-08 05:46 | XRR_ITS ---
PROCEDURE INFORMATION: Exam: XR Right Knee Exam date and time: 05/08/2023 6:29 AM Age: 67 years old Clinical indication: Pain and injury or trauma; Fall; Blunt trauma; Knee; Right; Prior surgery; Surgery date: 6+ months; Additional info: Fall, deformity, tkr, pain TECHNIQUE: Imaging protocol: Radiologic exam of the right knee. Views: 3 views. COMPARISON: CR (KNEE AP, KNEE, KNEE AP) 01/02/2022 9:34 AM FINDINGS: Bones/joints: Total-knee replacement. Anatomic alignment. An overriding,, displaced and angulated comminuted fracture of the distal femoral shaft is present. Soft tissues: Normal. XR/XR knee RT 3V* [id number] IMPRESSION: Fracture of the distal femur.
--- NOTE | 2023-05-08 05:46 | XRR_ITS ---
PROCEDURE INFORMATION: Exam: XR Right Wrist Exam date and time: 05/08/2023 6:24 AM Age: 67 years old Clinical indication: Injury or trauma; Fall; Blunt trauma (contusions or hematomas); Wrist; Right; Additional info: Fall pain TECHNIQUE: Imaging protocol: Radiologic exam of the right wrist. Views: 3 or more views. COMPARISON: No relevant prior studies available. FINDINGS: Bones/joints: Mildly impacted comminuted fracture of the distal radius with a nondisplaced ulnar styloid fracture present as well. No other osseous or joint abnormality. Soft tissues: Normal. XR/XR wrist RT min 3V* [id number] IMPRESSION: Wrist fracture.
--- NOTE | 2023-05-08 05:47 | W.ED.FALL ---
Documented by User: Luis Souza DO 05/08/23 21:01 HPI - Fall General: Chief Complaint: ER Hold Stated Complaint: fall Time Seen by Provider: 05/08/23 05:41 History of Present Illness: Patient brought in EMS status post fall on the ice. Patient is complaining of right wrist pain that is in a splint and also right knee pain that has deformity. Patient has had a total right knee replacement. Patient was given approximately 2 mg of Dilaudid on route for pain pain is adequately controlled at the moment. Patient denies any trauma to her head or pain anywhere else or loss of consciousness. Patient is not on any type of blood thinner. Per records it appears Dr. Malik did her knee replacement in approximately 2020 Review of Systems General: Reports: 10 or more systems reviewed and unremarkable except in HPI and below PFSH ED PFSH: Medical History (Updated 05/10/23 @ 07:41 by Ronnie Posada DO) Osteoarthritis GERD (gastroesophageal reflux disease) Depression with anxiety Diabetes mellitus type 2 in nonobese Hypercholesteremia Hypertension Surgical History (Updated 05/08/23 @ 12:52 by Rodger Orosco MD) History of bilateral tubal ligation History of left knee surgery History of right knee surgery History of hysterectomy Social History (Updated 05/08/23 @ 12:52 by Rodger Orosco MD) Smoking and tobacco/nicotine status: never used tobacco/nicotine Alcohol intake: never Physical Exam Const: COMMON NORMALS: no acute distress, average body habitus, patient oriented x3, no limitations, healthy appearing, alert and well nourished HENMT: COMMON NORMALS: normocephalic, atraumatic, hearing grossly normal bilaterally, external ears normal, Normal external nose present, moist oral mucous membranes and oropharynx normal HEAD & SCALP: normocephalic and atraumatic NOSE: Normal external nose present EXTERNAL EAR: Yes external ears normal Neck/C-Spine: COMMON NORMALS: full ROM, no lymphadenopathy, supple, no meningeal signs and no JVD Chest: COMMONS NORMALS: normal inspection of the chest and normal palpation of entire chest wall Resp: COMMON NORMALS: normal respiratory effort, No retractions and No use of accessory muscles Cardio: COMMON NORMALS: no JVD, regular rate, regular rhythm, S1 normal heart sound present, S2 normal heart sound present, No gallops present (Cardio), No clicks present (Cardio), No murmurs present (Cardio) and No rub (Cardio) RATE: regular rate RHYTHM: regular rhythm HEART SOUNDS: S1 normal heart sound present and S2 normal heart sound present GI: COMMON NORMALS: Normal to inspection, nondistended, normoactive bowel sounds present, Soft to palpation, non-tender, No hepatosplenomegaly present and no masses PALPATION: Yes Soft to palpation and Yes No hepatosplenomegaly present Extremity: OTHER: Right wrist in splint tender to palpate over wrist region only. Right knee obvious deformity tender to palpate over knee joint. Nontender to palpate over femur/tibia fibular region. Neuro: COMMON NORMALS: patient oriented x3 SENSORIUM/ORIENTATION: Yes alert MENINGEAL SIGNS: Yes no meningeal signs Course Vital Signs: Vital signs: Vital Signs Temperature 98.3 F 05/10/23 04:00 Pulse Rate 66 05/10/23 04:00 Respiratory Rate 18 05/10/23 04:00 Blood Pressure 171/81 05/10/23 04:00 Pulse Oximetry 96 05/10/23 04:00 Oxygen Delivery Me thod Room Air 05/10/23 04:00 MDM - Fall Medical Decision Making Patient care transferred over to Dr. Posadas at shift change anticipate patient will need admission secondary to right wrist fracture and right femur fracture Lab Data I reviewed the patient's lab results. 05/10/23 03:25 05/10/23 03:25 Radiology Impressions Knee X-Ray 05/08/23 05:46 IMPRESSION: Fracture of the distal femur. Wrist X-Ray 05/08/23 05:46 IMPRESSION: Wrist fracture. Laboratory Results WBC 11.96 10^3/uL (3.29-11.43) H 05/08/23 05:52 RBC 4.48 10^6/uL (3.85-5.65) 05/08/23 05:52 Hgb 13.50 g/dL (11.27-16.99) 05/08/23 05:52 Hct 42.1 % (36-47) 05/08/23 05:52 MCV 94.0 fl (85-98) 05/08/23 05:52 MCH 30.1 pg (27-33) 05/08/23 05:52 MCHC 32.1 g/dL (30-55) 05/08/23 05:52 RDW 14.0 % (12.1-15.1) 05/08/23 05:52 Plt Count 373 10^3/cmm (157-399) 05/08/23 05:52 MPV 11.4 fL (7.4-10.4) H 05/08/23 05:52 Neut % (Auto) 45.7 % 05/08/23 05:52 Lymph % (Auto) 38.8 % 05/08/23 05:52 [place] % (Auto) 11.7 % 05/08/23 05:52 Eos % (Auto) 2.6 % 05/08/23 05:52 Baso % (Auto) 0.8 % 05/08/23 05:52 Neut # (Auto) 5.47 10^3/uL (1.8-7.7) 05/08/23 05:52 Lymph # (Auto) 4.6 10^3/uL (0.8-4.8) 05/08/23 05:52 [place] # (Auto) 1.4 10^3/uL (0.2-0.9) H 05/08/23 05:52 Eos # (Auto) 0.3 10^3/uL (0.0-0.8) 05/08/23 05:52 Baso # (Auto) 0.1 10^3/uL (0.0-0.1) 05/08/23 05:52 Nucleated RBC % (auto) 0 % 05/08/23 05:52 Nucleated RBCs # 0.0 /100WBC 05/08/23 05:52 Sodium 141 mmol/L (136-145) 05/08/23 05:52 Potassium 3.5 mmol/L (3.5-5.1) 05/08/23 05:52 Chloride 101 mmol/L (98-107) 05/08/23 05:52 Carbon Dioxide 24 mmol/L (22-29) 05/08/23 05:52 Anion Gap 19.5 (5-19) H 05/08/23 05:52 BUN 23 mg/dL (8-23) 05/08/23 05:52 Creatinine 0.7 mg/dL (0.5-0.9) 05/08/23 05:52 GFR Calculation 83.2 mL/min (90-130) L 05/08/23 05:52 Glucose 209 mg/dL (65-115) H 05/08/23 05:52 POC Glucose 164 mg/dL (70-110) H 05/08/23 12:01 Calculated Osmolality 302 mOsm/kg (285-295) H 05/08/23 05:52 Calcium 9.6 mg/dL (8.5-10.5) 05/08/23 05:52 Total Bilirubin 0.3 mg/dL (0.15-1.2) 05/08/23 05:52 AST 40 U/L (0-32) H 05/08/23 05:52 ALT 49 U/L (0-33) H 05/08/23 05:52 Alkaline Phosphatase 127 U/L (35-105) H 05/08/23 05:52 Total Protein 7.7 g/dL (6.6-8.7) 05/08/23 05:52 Albumin 4.6 g/dL (3.5-5.2) 05/08/23 05:52 Globulin 3.1 g/dL (1.3-4.6) 05/08/23 05:52 Urine Color Yellow (Yellow) 05/08/23 10:37 Urine Appearance Clear (CLEAR) 05/08/23 10:37 Urine pH 5 (5-7) 05/08/23 10:37 Ur Specific [place] 1.025 (1.005-1.030) 05/08/23 10:37 Urine Protein Neg (Negative) 05/08/23 10:37 Urine Glucose (UA) 1+ (Normal) H 05/08/23 10:37 Urine Ketones Negative (Negative) 05/08/23 10:37 Urine Blood Neg (Negative) 05/08/23 10:37 Urine Nitrate Negative (Negative) 05/08/23 10:37 Urine Bilirubin Neg (Negative) 05/08/23 10:37 Urine Urobilinogen Norm mg/dL (Negative) 05/08/23 10:37 Ur Leukocyte Esterase Negative (Negative) 05/08/23 10:37 All radiology interpretation(s) finalized by discharge Discharge Plan Discharge Patient Disposition: Admitted As Inpatient Admit Provider: La Malik Clinical Impression: Right femoral fracture, Right radial fracture, Diabetes mellitus type 2 in nonobese Condition: Stable Coding Level of Care Code ED Supervisor [employer] for Alvina Brito Documented by User: Ronnie Posada DO 05/10/23 07:41 HPI - Fall General: Chief Complaint: ER Hold Stated Complaint: fall Time Seen by Provider: 05/08/23 05:41 PFS ED PFSH: Medical History (Updated 05/10/23 @ 07:41 by Ronnie Posada DO) Osteoarthritis GERD (gastroesophageal reflux disease) Depression with anxiety Diabetes mellitus type 2 in nonobese Hypercholesteremia Hypertension Surgical History (Updated 05/08/23 @ 12:52 by Rodger Orosco MD) History of bilateral tubal ligation History of left knee surgery History of right knee surgery History of hysterectomy Social History (Updated 05/08/23 @ 12:52 by Rodger Orosco MD) Smoking and tobacco/nicotine status: never used tobacco/nicotine Alcohol intake: never Course Vital Signs: Vital signs: Vital Signs Temperature 98.3 F 05/10/23 04:00 Pulse Rate 66 05/10/23 04:00 Respiratory Rate 18 05/10/23 04:00 Blood Pressure 171/81 05/10/23 04:00 Pulse Oximetry 96 05/10/23 04:00 Oxygen Delivery Me thod Room Air 05/10/23 04:00 MDM - Fall Medical Decision Making Patient care transferred over to Dr. Posadas at shift change anticipate patient will need admission secondary to right wrist fracture and right femur fracture Right distal femoral fracture with significant displacement. Patient also has comminuted distal radius fracture. Discussed with Dr. Lazcano and with hospitalist will admit orders written Medical Records I reviewed the patient's medical records. Lab Data I reviewed the patient's lab results. 05/10/23 03:25 05/10/23 03:25 Radiology Impressions Knee X-Ray 05/08/23 05:46 IMPRESSION: Fracture of the distal femur. Wrist X-Ray 05/08/23 05:46 IMPRESSION: Wrist fracture. Laboratory Results WBC 11.96 10^3/uL (3.29-11.43) H 05/08/23 05:52 RBC 4.48 10^6/uL (3.85-5.65) 05/08/23 05:52 Hgb 13.50 g/dL (11.27-16.99) 05/08/23 05:52 Hct 42.1 % (36-47) 05/08/23 05:52 MCV 94.0 fl (85-98) 05/08/23 05:52 MCH 30.1 pg (27-33) 05/08/23 05:52 MCHC 32.1 g/dL (30-55) 05/08/23 05:52 RDW 14.0 % (12.1-15.1) 05/08/23 05:52 Plt Count 373 10^3/cmm (157-399) 05/08/23 05:52 MPV 11.4 fL (7.4-10.4) H 05/08/23 05:52 Neut % (Auto) 45.7 % 05/08/23 05:52 Lymph % (Auto) 38.8 % 05/08/23 05:52 [place] % (Auto) 11.7 % 05/08/23 05:52 Eos % (Auto) 2.6 % 05/08/23 05:52 Baso % (Auto) 0.8 % 05/08/23 05:52 Neut # (Auto) 5.47 10^3/uL (1.8-7.7) 05/08/23 05:52 Lymph # (Auto) 4.6 10^3/uL (0.8-4.8) 05/08/23 05:52 [place] # (Auto) 1.4 10^3/uL (0.2-0.9) H 05/08/23 05:52 Eos # (Auto) 0.3 10^3/uL (0.0-0.8) 05/08/23 05:52 Baso # (Auto) 0.1 10^3/uL (0.0-0.1) 05/08/23 05:52 Nucleated RBC % (auto) 0 % 05/08/23 05:52 Nucleated RBCs # 0.0 /100WBC 05/08/23 05:52 Sodium 141 mmol/L (136-145) 05/08/23 05:52 Potassium 3.5 mmol/L (3.5-5.1) 05/08/23 05:52 Chloride 101 mmol/L (98-107) 05/08/23 05:52 Carbon Dioxide 24 mmol/L (22-29) 05/08/23 05:52 Anion Gap 19.5 (5-19) H 05/08/23 05:52 BUN 23 mg/dL (8-23) 05/08/23 05:52 Creatinine 0.7 mg/dL (0.5-0.9) 05/08/23 05:52 GFR Calculation 83.2 mL/min (90-130) L 05/08/23 05:52 Glucose 209 mg/dL (65-115) H 05/08/23 05:52 POC Glucose 164 mg/dL (70-110) H 05/08/23 12:01 Calculated Osmolality 302 mOsm/kg (285-295) H 05/08/23 05:52 Calcium 9.6 mg/dL (8.5-10.5) 05/08/23 05:52 Total Bilirubin 0.3 mg/dL (0.15-1.2) 05/08/23 05:52 AST 40 U/L (0-32) H 05/08/23 05:52 ALT 49 U/L (0-33) H 05/08/23 05:52 Alkaline Phosphatase 127 U/L (35-105) H 05/08/23 05:52 Total Protein 7.7 g/dL (6.6-8.7) 05/08/23 05:52 Albumin 4.6 g/dL (3.5-5.2) 05/08/23 05:52 Globulin 3.1 g/dL (1.3-4.6) 05/08/23 05:52 Urine Color Yellow (Yellow) 05/08/23 10:37 Urine Appearance Clear (CLEAR) 05/08/23 10:37 Urine pH 5 (5-7) 05/08/23 10:37 Ur Specific [place] 1.025 (1.005-1.030) 05/08/23 10:37 Urine Protein Neg (Negative) 05/08/23 10:37 Urine Glucose (UA) 1+ (Normal) H 05/08/23 10:37 Urine Ketones Negative (Negative) 05/08/23 10:37 Urine Blood Neg (Negative) 05/08/23 10:37 Urine Nitrate Negative (Negative) 05/08/23 10:37 Urine Bilirubin Neg (Negative) 05/08/23 10:37 Urine Urobilinogen Norm mg/dL (Negative) 05/08/23 10:37 Ur Leukocyte Esterase Negative (Negative) 05/08/23 10:37 Discharge Plan Discharge Patient Disposition: Admitted As Inpatient Admit Provider: La Malik Clinical Impression: Right femoral fracture, Right radial fracture, Diabetes mellitus type 2 in nonobese Condition: Stable Coding Level of Care Code ED Supervisor [employer] for Alvina Brito
--- NOTE | 2023-05-08 07:39 | XR_ITS ---
WS: [id number] XR hip RT 2-3V wo/w pel* [id number] REASON FOR EXAM: fall FINDINGS: Mild/moderate narrowing of the joint space with mild subchondral sclerosis of the acetabulum. Femoral head neck intact without identifiable fracture. Proximal humeral shaft is normal. Adjacent bony pelvis is intact. IMPRESSION: No acute abnormality. Moderate osteoarthritis.
--- NOTE | 2023-05-08 07:40 | XR_ITS ---
WS: [id number] XR chest 1V portable [id number] REASON FOR EXAM: dyspnea/cough FINDINGS: Moderate tortuosity of the thoracic aorta. Heart at the upper limits of normal in size. Calcified granulomas disease in both hemithoraces. No active pulmonary parenchymal or pleural disease. Moderate changes of degenerative spondylosis in the mid and lower thoracic spine. IMPRESSION: No acute chest abnormality.
--- NOTE | 2023-05-08 07:45 | ECG_ITS ---
[facility] Test Date: 2023-05-08 Pat Name: Rosette Harrington Department: Room: Gender: Female Insole Lip Turner: : 1955 Requested By: Ronnie Ruiz Order Number: [id number] Wolfgang MD: Juan Mosley M.D. Measurements Intervals [place] Rate: 82 P: 24 MO: 151 QRS: 15 QRSD: 79 T: 140 QT: 358 QTc: 419 Interpretive Statements SINUS RHYTHM WITH SINUS ARRHYTHMIA MODERATE T-WAVE ABNORMALITY, CONSIDER ANTEROLATERAL ISCHEMIA [-0.1+ mV T-WAVE IN V3-V6] Compared to ECG 02/25/2021 12:54:09 Possible ischemia now present T-wave abnormality still present Electronically Signed On 05-08-2023 19:49:29 [employer] SPECIALIST by Juan Mosley M.D. [email or web address]
[2023-05-08 08:20] LABS: Basophils # 0.1 10^3/uL (0.0-0.1); Basophils % 0.8 %; Eosinophils # 0.3 10^3/uL (0.0-0.8); Eosinophils % 2.6 %; Hematocrit 42.1 % (36-47); Lymphocytes # 4.6 10^3/uL (0.8-4.8); Lymphocytes % 38.8 %; Mean Corpuscular HGB Conc 32.1 g/dL (30-55); Mean Corpuscular Hemoglobin 30.1 pg (27-33); Mean Platelet Volume 11.4 fL (7.4-10.4); Monocytes # 1.4 10^3/uL (0.2-0.9); Monocytes % 11.7 %; Neutrophils # 5.47 10^3/uL (1.8-7.7); Neutrophils % 45.7 %; Nucleated Red Blood Cells % 0 %; Platelet Count 373 10^3/cmm (157-399); Red Blood Count 4.48 10^6/uL (3.85-5.65); White Blood Count 11.96 10^3/uL (3.29-11.43)
[2023-05-08 08:33] LABS: Alanine Aminotransferase 49 U/L (0-33); Albumin Level 4.6 g/dL (3.5-5.2); Alkaline Phosphatase 127 U/L (35-105); Anion Gap 19.5 (5-19); Aspartate Amino Transferase 40 U/L (0-32); Blood Urea Nitrogen 23 mg/dL (8-23); Calcium 9.6 mg/dL (8.5-10.5); Carbon Dioxide 24 mmol/L (22-29); Chloride 101 mmol/L (98-107); Globulin 3.1 g/dL (1.3-4.6); Glomerular Filtration Rate 83.2 mL/min (90-130); Glucose 209 mg/dL (65-115); Osmolality Calculated 302 mOsm/kg (285-295); Potassium 3.5 mmol/L (3.5-5.1); Sodium 141 mmol/L (136-145); Total Bilirubin 0.3 mg/dL (0.15-1.2); Total Protein 7.7 g/dL (6.6-8.7)
[2023-05-08] MEDS: ondansetron 2 mg/ML SDV 2 mL 4 MG IVP (10:40)
[2023-05-08] MEDS: morphine 4 mg/mL SDV 1 mL 2 MG IVP (10:41)
[2023-05-08 10:44] LABS: Add Urine Microscopic? NO; Charge for UA Resulting for Rev
[2023-05-08 10:51] LABS: Urine Color Yellow (Yellow)
[2023-05-08 10:52] LABS: Bilirubin Urine Neg (Negative); Blood Urine Neg (Negative); Glucose Urine UA 1+ (Normal); Ketones Urine Negative (Negative); Leukocyte Esterase Urine Negative (Negative); Nitrate Urine Negative (Negative); Protein Urine Neg (Negative); Specific Gravity, Urine 1.025 (1.005-1.030); Urine Appearance Clear (CLEAR); Urobilinogen Urine Norm (Negative); pH Urine 5 (5-7)
[2023-05-08] MEDS: sodium chloride 0.9% 1,000 ML 30 ML IV (11:45)
[2023-05-08] MEDS: CELEcoxib 200 mg Capsule 400 MG PO (11:47)
[2023-05-08] MEDS: acetaminophen 1,000 MG/100 ML PIGGYBACK 400 MG IV ×2 (11:47→22:22)
[2023-05-08] MEDS: scopolamine 1.5 Patch 1 PATCH TRANSDERMA (11:58)
[2023-05-08 12:44] LABS: Glucose Point of Care 164 mg/dL (70-110)
--- NOTE | 2023-05-08 12:49 | P.HP_ITS ---
Providers/Chief Complaint 2 Admitting Physician: Rodger Orosco MD, hospitalist Chief Complaint: fall History of Present Illness Rosette Harrington is a 67 year old female presenting to the hospital following a fall on ice. She denies any syncopal episode, head or neck injury. After the fall she had immediate right knee pain, mainly above where she had a total knee arthroplasty in the past. She also had pain in her right wrist. She reports no recent illness, difficulty with anesthesia, bleeding disorder, blood in her stool or black or tarry stools. Review of Systems 2 Card: Denies: chest pain Resp: Denies: dyspnea GI: Denies: hematochezia or melena Medications/Allergies Home Medications Medication Instructions Recorded Confirmed Last Taken Type amlodipine 10 mg tablet 10 mg PO QAM 01/05/20 05/08/23 05/08/23 History atenolol 50 mg tablet 50 mg PO QAM 01/05/20 05/08/23 05/08/23 History citalopram 20 mg tablet 20 mg PO BEDTIME 01/05/20 05/08/23 05/07/23 History hydrochlorothiazide 25 mg tablet 25 mg PO QAM 01/05/20 05/08/23 05/08/23 History lisinopril 40 mg tablet 40 mg PO QAM 01/05/20 05/08/23 05/08/23 History metformin 1,000 mg tablet 1,000 mg PO BID 01/05/20 05/08/23 05/08/23 History omeprazole 20 mg tablet,delayed 20 mg PO BID 01/05/20 05/08/23 05/08/23 History release HINGED KNEE BRACE #1 ea 03/10/20 05/08/23 Unknown Rx atorvastatin 40 mg tablet 40 mg PO QPM 02/25/21 05/08/23 05/07/23 History multivitamin 1 tab PO DAILY 03/02/21 05/08/23 05/08/23 History knee immobilizer #1 ea 04/11/21 05/08/23 Unknown Rx meloxicam 15 mg tablet 15 mg PO DAILY 05/08/23 05/08/23 05/08/23 History tizanidine 2 mg tablet 2 mg PO Q8H PRN Muscle Spasticity 05/08/23 05/08/23 Unknown History Allergies Allergy/AdvReac Type Severity Reaction Status Date / Time No Known Allergies Allergy Verified 01/02/22 09:43 PFSH Acute 2 PFSH: Medical History (Updated 05/08/23 @ 12:56 by Rodger Orosco MD) Osteoarthritis GERD (gastroesophageal reflux disease) Depression with anxiety Diabetes mellitus type 2 in nonobese Hypercholesteremia Hypertension Surgical History (Updated 05/08/23 @ 12:52 by Rodger Orosco MD) History of bilateral tubal ligation History of left knee surgery History of right knee surgery History of hysterectomy Social History (Updated 05/08/23 @ 12:52 by Rodger Orosco MD) Smoking and tobacco/nicotine status: never used tobacco/nicotine Alcohol intake: never Vitals/I&O/Wt Last Vital Signs Temp 98.7 F 05/08/23 11:33 Pulse 75 05/08/23 11:33 Resp 18 05/08/23 11:33 BP 177/97 05/08/23 11:33 Pulse Ox 95 05/08/23 11:33 O2 Del Method Room Air 05/08/23 11:33 Weight last 48 hrs Weight 70.307 kg Physical Exam 2 Narrative: General exam is white female, no distress Neck is supple no lymphadenopathy thyromegaly Cardiovascular regular rate and rhythm without murmur Lungs clear Abdomen is soft Extremities no sinus clubbing or edema, no right foot drop. Distal neurovascular intact. There is a splint on her right leg, as well as a ulnar gutter splint on her right upper extremity. Skin no rash Neuro no obvious focal deficits Data 05/08/23 05:52 05/08/23 05:52 Other Labs: AST 40, ALT 49, alk phos 127. Bilirubin is normal Albumin and calcium are normal Urinalysis is negative Chest x-ray by my review demonstrates no infiltrate Wrist x-ray demonstrates a right distal radius fracture by my read Hip and pelvis x-ray demonstrate a left femur fracture, distally by my read EKG by my read demonstrates normal sinus rhythm, normal axis, flipped T waves throughout A&P Assessment and plan (1) Right femoral fracture: Patient presents with a mechanical fall, sustaining right femur fracture, distally as well as right radial fracture Orthopedic consult From my understanding she is currently in surgery DVT prophylaxis to be arranged by orthopedic physician following surgery Pain control Discharge planning Hold lisinopril, monitoring blood pressure before potentially giving tomorrow. (2) Right radial fracture: Splint was placed in ER See above (3) Diabetes mellitus type 2 in nonobese: Sliding scale insulin Consistent carb diet (4) Abnormal EKG: Echocardiogram will be obtained She has had no chest pain, no direct contraindications to surgery Plan Transaminitis. Asymptomatic. Recheck liver test tomorrow. Multiple other medical problems as outlined in past medical history Full code DVT prophylaxis to be placed on patient after surgery Attestations 2 Medical Necessity Statement*: Will need greater than 2 midnight stay for evaluation and treatment of wrist and femur fracture Diagnoses Right femoral fracture S72.91XA Right radial fracture S52.91XA Diabetes mellitus type 2 in nonobese E11.9 Abnormal EKG R94.31 Time Spent (min) 41
[2023-05-08] MEDS: fentaNYL 50 mcg/mL INJ 2mL IVP (13:09)
--- NOTE | 2023-05-08 13:42 | P.ANESASSM_ITS ---
Pre-Anesthetic Assessment Height/Weight: Height 1.52 m Weight 70.307 kg Temp Pulse Resp BP Pulse Ox O2 Del Method 98.7 F 75 18 177/97 95 Room Air 05/08/23 11:33 05/08/23 11:33 05/08/23 11:33 05/08/23 11:33 05/08/23 11:33 05/08/23 11:33 Operation Date: 05/08/23 14:50 Proposed Procedures s ORIF Wrist(Right) - La Malik MD p ORIF distal femur(Right) - La Malik MD Familial anesthetic complications: None Was Beta Matias taken within 24 hours: Yes Was Clonidine taken within 24 hours: N/A Last intake: Intake Last Liquid Date 05/08/23 Last Liquid Time 03:30 Last Solid Date 05/07/23 Last Solid Time 16:30 Social No alcohol and No tobacco Exam alert, oriented x 3, clear to auscultation bilaterally and regular rate & rhythm Airway Mallampati: Class III Dentition: full CV/HEM Hypertension GI Gastroesophageal Reflux Disease Metabolic Diabetes Mellitus and Hyperlipidemia Anesthetic Plan ASA status: 3 Anesthesia: Eval. for regional block and General Risk of > 500 ml blood loss (7ml/kg in children): No Medications/Allergies Home Medications Medication Instructions Recorded Confirmed Last Taken Type amlodipine 10 mg tablet 10 mg PO QAM 01/05/20 05/08/23 05/08/23 History atenolol 50 mg tablet 50 mg PO QAM 01/05/20 05/08/23 05/08/23 History citalopram 20 mg tablet 20 mg PO BEDTIME 01/05/20 05/08/23 05/07/23 History hydrochlorothiazide 25 mg tablet 25 mg PO QAM 01/05/20 05/08/23 05/08/23 History lisinopril 40 mg tablet 40 mg PO QAM 01/05/20 05/08/23 05/08/23 History metformin 1,000 mg tablet 1,000 mg PO BID 01/05/20 05/08/23 05/08/23 History omeprazole 20 mg tablet,delayed 20 mg PO BID 01/05/20 05/08/23 05/08/23 History release HINGED KNEE BRACE #1 ea 03/10/20 05/08/23 Unknown Rx atorvastatin 40 mg tablet 40 mg PO QPM 02/25/21 05/08/23 05/07/23 History multivitamin 1 tab PO DAILY 03/02/21 05/08/23 05/08/23 History knee immobilizer #1 ea 04/11/21 05/08/23 Unknown Rx meloxicam 15 mg tablet 15 mg PO DAILY 05/08/23 05/08/23 05/08/23 History tizanidine 2 mg tablet 2 mg PO Q8H PRN Muscle Spasticity 05/08/23 05/08/23 Unknown History Allergies Allergy/AdvReac Type Severity Reaction Status Date / Time No Known Allergies Allergy Verified 01/02/22 09:43 Current Medications Generic Name Dose Route Start Last Admin Trade Name Freq PRN Reason Stop Dose Admin Fentanyl 50 mcg 05/08/23 11:33 05/08/23 13:09 Fentanyl 50 Mcg/Ml Inj 2ml IVP 05/09/23 11:33 50 mcg Q5M PRN Administration Pain level 6-10 PACU Phase I Sodium Chloride 1,000 mls @ 30 mls/hr 05/08/23 11:45 05/08/23 11:45 Sodium Chloride 0.9% IV 05/09/23 11:44 30 mls/hr .Q24H JONH Administration Morphine Sulfate 2 mg 05/08/23 09:47 05/08/23 10:41 Morphine 4 Mg/Ml Sdv 1 Ml IVP 2 mg Q4H PRN Administration SEVERE PAIN Ondansetron HCl 4 mg 05/08/23 09:47 05/08/23 10:40 Ondansetron 2 Mg/Ml Sdv 2 Ml IVP 4 mg Q6H PRN Administration NAUSEA AND VOMITING PFSH Anesthesia Medical History (Updated 05/08/23 @ 12:56 by Rodger Orosco MD) Osteoarthritis GERD (gastroesophageal reflux disease) Depression with anxiety Diabetes mellitus type 2 in nonobese Hypercholesteremia Hypertension Surgical History (Updated 05/08/23 @ 12:52 by Rodger Orosco MD) History of bilateral tubal ligation History of left knee surgery History of right knee surgery History of hysterectomy Social History (Updated 05/08/23 @ 12:52 by Rodger Orosco MD) Smoking and tobacco/nicotine status: never used tobacco/nicotine Alcohol intake: never Data Anesthesia 05/08/23 05:52 05/08/23 05:52 Short CBC 05/08/23 Range/Units 05:52 WBC 11.96 H (3.29-11.43) 10^3/uL Hgb 13.50 (11.27-16.99) g/dL Hct 42.1 (36-47) % MCV 94.0 (85-98) fl Plt Count 373 (157-399) 10^3/cmm Neut % (Auto) 45.7 % Neut # (Auto) 5.47 (1.8-7.7) 10^3/uL BMP 05/08/23 05:52 Sodium 141 Potassium 3.5 Chloride 101 Carbon Dioxide 24 BUN 23 Creatinine 0.7 Glucose 209 H Calcium 9.6 Liver Function 05/08/23 Range/Units 05:52 Total Bilirubin 0.3 (0.15-1.2) mg/dL AST 40 H (0-32) U/L ALT 49 H (0-33) U/L Alkaline Phosphatase 127 H (35-105) U/L Albumin 4.6 (3.5-5.2) g/dL Urine 05/08/23 Range/Units 10:37 Urine Color Yellow (Yellow) Urine Appearance Clear (CLEAR) Urine pH 5 (5-7) Ur Specific [place] 1.025 (1.005-1.030) Urine Protein Neg (Negative) Urine Glucose (UA) 1+ H (Normal) Urine Ketones Negative (Negative) Urine Nitrate Negative (Negative) Urine Bilirubin Neg (Negative) Ur Leukocyte Esterase Negative (Negative) Cardiac Studies: 2 No Data to Display
--- NOTE | 2023-05-08 14:07 | PM.CONSULT ---
Providers/Reason For Consult Consulting Physician/Specialty*: La Malik MD Reason for Consult*: Right periprosthetic distal femur fracture and right distal radius fracture Requesting Physician: Dr. Luis Souza Attending Physician: La Malik MD History of Present Illness History of Present Illness Rosette Harrington is a 67 year old female who was in her usual state of health when she slipped and fell on the ice. 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 The patient denied any reason for her fall other than a slip on the ice. She denied any syncopal symptoms or neck pain, and she denies hitting her head. Patient was seen in the emergency department. She was found there to have a periprosthetic right distal femur fracture with significant displacement as well as a right distal radius fracture. Review of Systems General: Reports: 10 or more systems reviewed and unremarkable except in HPI and below Card: Denies: chest pain Resp: Denies: dyspnea GI: Denies: hematochezia or melena Medications/Allergies Home Medications Medication Instructions Recorded Confirmed Last Taken Type amlodipine 10 mg tablet 10 mg PO QAM 01/05/20 05/08/23 05/08/23 History atenolol 50 mg tablet 50 mg PO QAM 01/05/20 05/08/23 05/08/23 History citalopram 20 mg tablet 20 mg PO BEDTIME 01/05/20 05/08/23 05/07/23 History hydrochlorothiazide 25 mg tablet 25 mg PO QAM 01/05/20 05/08/23 05/08/23 History lisinopril 40 mg tablet 40 mg PO QAM 01/05/20 05/08/23 05/08/23 History metformin 1,000 mg tablet 1,000 mg PO BID 01/05/20 05/08/23 05/08/23 History omeprazole 20 mg tablet,delayed 20 mg PO BID 01/05/20 05/08/23 05/08/23 History release HINGED KNEE BRACE #1 ea 03/10/20 05/08/23 Unknown Rx atorvastatin 40 mg tablet 40 mg PO QPM 02/25/21 05/08/23 05/07/23 History multivitamin 1 tab PO DAILY 11/05/08/23 05/08/23 History knee immobilizer #1 ea 04/11/21 05/08/23 Unknown Rx meloxicam 15 mg tablet 15 mg PO DAILY 05/08/23 05/08/23 05/08/23 History tizanidine 2 mg tablet 2 mg PO Q8H PRN Muscle Spasticity 05/08/23 05/08/23 Unknown History Allergies Allergy/AdvReac Type Severity Reaction Status Date / Time No Known Allergies Allergy Verified 01/02/22 09:43 Current Medications Generic Name Dose Route Start Last Admin Trade Name Freq PRN Reason Stop Dose Admin Fentanyl 50 mcg 05/08/23 11:33 05/08/23 13:09 Fentanyl 50 Mcg/Ml Inj 2ml IVP 05/09/23 11:33 50 mcg Q5M PRN Administration Pain level 6-10 PACU Phase I Sodium Chloride 1,000 mls @ 30 mls/hr 05/08/23 11:45 05/08/23 11:45 Sodium Chloride 0.9% IV 05/09/23 11:44 30 mls/hr .Q24H JONH Administration Morphine Sulfate 2 mg 05/08/23 09:47 05/08/23 10:41 Morphine 4 Mg/Ml Sdv 1 Ml IVP 2 mg Q4H PRN Administration SEVERE PAIN Ondansetron HCl 4 mg 05/08/23 09:47 05/08/23 10:40 Ondansetron 2 Mg/Ml Sdv 2 Ml IVP 4 mg Q6H PRN Administration NAUSEA AND VOMITING PFSH Acute PFSH: Medical History (Updated 05/08/23 @ 14:16 by La Malik MD) Osteoarthritis GERD (gastroesophageal reflux disease) Depression with anxiety Diabetes mellitus type 2 in nonobese Hypercholesteremia Hypertension Surgical History (Updated 05/08/23 @ 12:52 by Rodger Orosco MD) History of bilateral tubal ligation History of left knee surgery History of right knee surgery History of hysterectomy Social History (Updated 05/08/23 @ 12:52 by Rodger Orosco MD) Smoking and tobacco/nicotine status: never used tobacco/nicotine Alcohol intake: never Vitals/I&O/Wt Last Vital Signs Temp 98.7 F 05/08/23 11:33 Pulse 75 05/08/23 11:33 Resp 18 05/08/23 11:33 BP 177/97 05/08/23 11:33 Pulse Ox 95 05/08/23 11:33 O2 Del Method Room Air 05/08/23 11:33 Weight last 48 hrs Weight 155 lb Physical Exam Const: COMMON NORMALS: no acute distress, average body habitus, patient oriented x3 and alert GENERAL APPEARANCE: cooperative and comfortable ORIENTATION/CONSCIOUSNESS: Yes awake HENMT: COMMON NORMALS: normocephalic and atraumatic HEAD & SCALP: normocephalic and atraumatic Eye: GENERAL EYE: appearance normal, both eyes and all related structures Chest: COMMONS NORMALS: normal inspection of the chest Resp: COMMON NORMALS: normal respiratory effort EFFORT & INSPECTION: Yes able to speak in complete sentences and Yes symmetric chest movement Extremity: RIGHT UPPER EXTREMITY: Yes wrist (Splint is in place. The patient appears neurologically intact.) Right wrist: Yes inspection (Splint remains in place.) and Yes ROM (Not evaluated.) RIGHT LOWER EXTREMITY: Yes knee joint (The patient is in a knee immobilizer which is not removed for evaluation.) Right knee: Yes ROM (Intact distally, knee range of motion not evaluated) and Yes neurovascular exam (Intact distally) Neuro: COMMON NORMALS: patient oriented x3 SENSORIUM/ORIENTATION: Yes alert Psych: COMMON NORMALS: mental status grossly normal APPEARANCE: Yes grossly normal ATTITUDE: Yes calm and Yes engaged ATTENTION/CONCENTRATION: Yes attention grossly intact Skin: COMMON NORMALS: no rashes or lesions noted GENERAL SKIN EXAM: no rashes or lesions noted Data 05/08/23 05:52 05/08/23 05:52 Xray Ortho: My impression: I have personally interpreted both the distal femur imaging and distal radius imaging. Additional imaging included the right hip. 3 views of the patient's right knee demonstrates a comminuted significantly displaced shortened right periprosthetic fracture above a total knee. The knee remains in good position. 3 views of the patient's right wrist demonstrate a distal radius fracture with shortening and intra-articular extension. A&P Assessment and plan (1) Periprosthetic fracture around internal prosthetic knee joint: X-rays demonstrate a significantly displaced and angulated periprosthetic distal femur fracture above the patient's right total knee arthroplasty. There is no evidence of loosening of the right total knee. The fracture was felt to be too distal for placement of an intramedullary nail, therefore, we will plan open reduction internal fixation with a lateral femoral plate and screws. This was discussed with the patient, and consents were signed. (2) Closed fracture of distal ends of right radius and ulna: Patient has a distal radius fracture with shortening and comminution. As she will have rehab for her right distal femur fracture requiring use of this upper extremity, it is felt prudent to proceed with open reduction internal fixation of the right distal radius fracture. Risks and complications are discussed with the patient. Consents were signed preoperatively. Questions were answered. Qualifiers: Encounter type: initial encounter Qualified Code(s): S52.501A - Unspecified fracture of the lower end of right radius, initial encounter for closed fracture; S52.601A - Unspecified fracture of lower end of right ulna, initial encounter for closed fracture (3) Status post total right knee replacement not using cement: Coding Level of Care Code Acute Code for [facility] Fwd Diagnoses Periprosthetic fracture around internal prosthetic knee joint M97.8XXA; Z96.659 Closed fracture of distal ends of right radius and ulna, initial encounter S52.501A; S52.601A Encounter type: initial encounter Status post total right knee replacement not using cement Z96.651
--- NOTE | 2023-05-08 14:22 | ANES.PROC ---
Anesthesia Procedures Procedure/Date: 05/08/23 Nerve Block ^: Nerve Block 1: Main Anesthesia: general anesthesia Time Out Performed: Yes Consent: requested by attending/covering physician, from patient, from other, risks and benefits reviewed and patient agrees to proceed Nerve block location: adductor canal (R) Anesthesia monitors applied: pulse oximetry, EKG, BP cuff and oxygen Nerve block position: supine Anesthetic Used: ropivicaine 0.5% (30 ml) and with decadron (4 mg) Ultrasound used to: recognize landmarks and visualize and ID femerol nerve Nerve Stimulator Used?: No Interscalene/Femoral BLK: 4 stimuplex 21 g needle used for position and inplane approach, visualize local anesthetic spread and no vascular puncture identified Injection: neg aspiration of heme Patient Tolerated Procedure: well Complications: none
[2023-05-08] MEDS: ceFAZolin 2,000 MG in sodium chloride 0.9% (plus) 50 ML 100 MG IV ×2 (15:36→23:27)
[2023-05-08] MEDS: tranexamic acid 1,000 mg/10mL SDV 1000 MG IV (16:18)
[2023-05-08] MEDS: ceFAZolin 1,000 mg SDV 1000 MG IRRIGATION (16:32)
[2023-05-08] MEDS: vancomycin 1,000 MG SDV 1000 MG XX (16:32)
--- NOTE | 2023-05-08 16:38 | USCV_ITS ---
Rosette Harrington Age: 67 Gender: F : 1955 Exam Date: 05/08/2023 20:00 Ordering Phys: Rodger Orosco MD Technologist: BEATRIS Exam Location: [facility] [place] Indication: abnormal EKG, post ORIF RT periprosthetic femur fx and RIGHT radial c/o GLF on ice. No history of cardiac intervention per pt BP: 177 / 97 HR: 76 Rhythm: Sinus Technical Quality: Adequate MEASUREMENTS (Male / Female) Normal Values 2D ECHO LV Diastolic Diameter PLAX 4.4 cm 4.2 - 5.9 / 3.9 - 5.3 cm LV Systolic Diameter PLAX 3.2 cm IVS Diastolic Thickness 1.2 cm 0.6 - 1.0 / 0.6 - 0.9 cm IVS Systolic Thickness 0.8 cm LVPW Diastolic Thickness 0.9 cm 0.6 - 1.0 / 0.6 - 0.9 cm LVPW Systolic Thickness 0.9 cm LVOT Diameter 2.0 cm LV Ejection Fraction 2D Teich 53.9 % LV Ejection Fraction MOD 2C 60.8 % LV Ejection Fraction 2C AL 61.3 % LA Diameter 3.5 cm LA Width 3.6 cm LA Height 3.9 cm RA Width 2.9 cm RA Height 4.7 cm Aorta at Sinotubular Diameter 2.5 cm IVC Diameter 2.1 cm M-MODE Aortic Annulus Diameter 0.0 cm MV E Point Septal Separation 0.2 cm DOPPLER AV Peak Velocity 220.3 cm/s LVOT Peak Velocity 118.0 cm/s AV Area Cont Eq vti 2.0 cm squared AV Area Cont Eq pk 1.6 cm squared MV Peak Velocity 120.0 cm/s MV Area PHT 2.2 cm squared Mitral E to A Ratio 0.4 MV E' Velocity 25.0 cm/s Mitral E to MV E' Ratio 8.6 Mitral E to LV E' Lateral Ratio 6.7 Mitral E to LV E' Septal Ratio 11.8 TR Peak Velocity 233.0 cm/s TR Peak Gradient 21.7 mmHg TV Peak E Velocity 56.0 cm/s Right Atrial Pressure 5.0 mmHg Pulmonary Artery Systolic Pressu 26.7 mmHg PV Peak Velocity 101.0 cm/s RV Acceleration Time 0.1 s RV Ejection Time 0.4 s RV AcT/ET 0.3 FINDINGS Left Ventricle Normal left ventricular size and systolic function, EF 57 %. No regional wall motion abnormalities. Grade I/IV diastolic dysfunction (abnormal relaxation filling pattern), normal to mildly elevated filling pressures. Right Ventricle The right ventricle is normal in size and function. Right Atrium The right atrium is normal in size. Left Atrium The left atrium is normal in size. Mitral Valve Moderate mitral annular calcification. Aortic Valve Mild aortic valve stenosis, mean gradient 9.6 mmHg, MILAN 1.8 cm squared. Peak velocity of 2.23 m/s with a peak gradient of 20 and a mean gradient of 10 mmHg Tricuspid Valve Trace tricuspid valve regurgitation. Pulmonic Valve No gross abnormalities noted Pericardium Normal pericardium without effusion. Aorta Plaque seen in the ascending aorta. IVC The inferior vena cava appears normal. CONCLUSIONS Normal left ventricular size and systolic function, EF 57 %. No regional wall motion abnormalities. Grade I/IV diastolic dysfunction (abnormal relaxation filling pattern), normal to mildly elevated filling pressures. Mild aortic valve stenosis, mean gradient 9.6 mmHg, MILAN 1.8 cm squared. Peak velocity of 2.23 m/s with a peak gradient of 20 and a mean gradient of 10 mmHg. Moderate mitral annular calcification. Plaque seen in the ascending aorta. Trace tricuspid valve regurgitation. Estimated pulmonary artery peak systolic pressure 27 mmHg There is no pericardial effusion. There are no intracardiac masses. No similar previous studies are available for comparison. Dr Juan Mosley MD [facility] (Electronically Signed) Final Date: 09 May 2023 18:20 S
[2023-05-08] MEDS: thrombin 5,000 unit SDV 5000 UNIT XX (16:45)
--- NOTE | 2023-05-08 18:18 | P.OP_ITS ---
Operative Report Date of procedure: May 08, 2023 Pre-op diagnosis: Right periprosthetic femur fracture, comminuted and displaced Post-op diagnosis: Right periprosthetic femur fracture, comminuted and displaced Post-op findings: Comminuted displaced periprosthetic distal femur fracture above right total knee Procedure done: Open reduction internal fixation right distal femur periprosthetic fracture Implants: The [place] 6 hole distal femoral plate with a combination of locking and nonlocking screws Specimens removed/disposition: None Pathology: None Surgeon: La Malik MD [employer] Technician: [facility] operating room technicians Anesthesia: General (Intubated, ASA 3) Estimated blood loss (mL): 2 IV fluids (mL): 1,300 (Over both the open reduction internal fixation of wrist and femur) Urine output (mL): 300 (Over both the open reduction internal fixation of wrist and femur) Complications: None Findings: Comminution of the distal femur above total knee arthroplasty. No obvious extension into the total knee or loosening of the total knee. Condition: stable Disposition: PACU (Then admit to floor for postoperative rehabilitation and pain management) Brief History: Rosette Harrington is a 67 year old female who was in her usual state of health when she slipped and fell on the ice. 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 The patient denied any reason for her fall other than a slip on the ice. She denied any syncopal symptoms or neck pain, and she denies hitting her head. Patient was seen in the emergency department. She was found there to have a periprosthetic right distal femur fracture with significant displacement as well as a right distal radius fracture. After discussion with the patient, plans were made for open reduction internal fixation of her femur fracture as well as open reduction internal fixation of her distal radius fracture to help facilitate postoperative ambulation. Preoperatively, consents were signed and questions were answered. Procedure: The patient was brought to the operating theater, and after undergoing adequate general anesthesia, ASA 3, intubated, the right lower extremity was prepped and draped in the usual fashion. The leg was then draped free with the prepping accomplished with DuraPrep. Following exposure of the site of surgery, a surgical pause was performed. At the time of the surgical pause we confirmed the site and side of surgery. Additionally, we confirmed the appropriate and timely administration of preoperative antibiotics, Ancef 2 g. The availability of equipment was confirmed, and the patient's identity was verbalized as well. Fluoroscopy was used throughout the surgical procedure. Prior to incision, fluoroscopy was utilized to determine appropriate length of plate and to evaluate the ability to reduce the fracture. Once the fracture was held in a reduced position, we chose the plate with fluoroscopy. This was a 6 hole distal femoral plate, lateral. Incision was marked out according to the length of the plate. Incision was then made uneventfully through the skin and subcutaneous tissues. Tensor fascia talia was immediately visualized. Hemostasis was obtained using electrocautery. A longitudinal incision was made in the tensor fascia talia, and retraction was accomplished anteriorly and posteriorly to identify the fracture and access to the lateral border of the femur. Incision was continued down into the area of the total knee to allow the plate to be placed distally enough. Reduction was then accomplished and held with appropriate clamps. Following this, the plate was placed in position. We were able to pin the plate in appropriate position while holding the fracture reduced. Position of the fracture was confirmed in AP and lateral planes. Once it was determined that the fracture was well reduced, the plate was further evaluated, and a screw was placed proximal and distal to the fracture. At this point, clamps remained in position as did the pins. 2 additional screws were placed 1 proximal and 1 distal. With this, we were able to stabilize the plate and further evaluate the fracture. Once again, fluoroscopy was used in AP and lateral planes. Being satisfied with position of the plate as well as reduction of the fracture, the remaining screw holes as appropriate were filled. Distally, all screws were locking. There was 1 oblong hole filled with a nonlocking screw. The 3 screws proximal to the fracture which were in cortical bone were also locking screws. Once the plate was in appropriate position, attention was directed to closure. The wound was copiously irrigated. Following irrigation the wound was suctioned dry. Closure was then accomplished over the plate with 0 Vicryl and the tensor fascia talia. The subcutaneous tissues were closed with 2-0 Monocryl, and the skin was closed with skin marcial. Sterile dressing was then placed consisting of Dermabond, OpSite, sterile soft roll, and an [place] wrap. At this point, attention was directed to the distal radius fracture with plans for open reduction internal fixation. Related Problem List Diagnoses (1) Periprosthetic fracture around internal prosthetic knee joint: (2) Status post total right knee replacement not using cement:
--- NOTE | 2023-05-08 18:18 | P.OP_ITS ---
Operative Report Date of procedure: May 08, 2023 Pre-op diagnosis: Right distal radius fracture, comminuted, displaced, and intra-articular Post-op diagnosis: Right distal radius fracture, comminuted, displaced, and intra-articular Post-op findings: Intra-articular displaced distal radius fracture with osteopenia Procedure done: Open reduction internal fixation right distal radius fracture utilizing the [place] volar wrist plate Implants: The [place] distal radius plate extra short narrow for the right wrist with locking screws and 1 nonlocking screw Specimens removed/disposition: None Surgeon: La Malik MD [employer] Spotter: [facility] operating room technicians Anesthesia: General (Intubated, ASA 3) Estimated blood loss (mL): 1 Tourniquet time (min): 33 (At 250 mmHg) IV fluids (mL): 1,300 (Including both surgeries, femur documented separately) Urine output (mL): 300 (Including both surgeries, femur documented separately) Complications: None Findings: Comminution and intra-articular extension of the distal radius fracture with osteopenia Condition: stable Disposition: PACU (Then admitted to the hospital under hospitalist team for postoperative care and rehabilitation) Brief History: Rosette Harrington is a 67 year old female who was in her usual state of health when she slipped and fell on the ice. 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 The patient denied any reason for her fall other than a slip on the ice. She denied any syncopal symptoms or neck pain, and she denies hitting her head. Patient was seen in the emergency department. She was found there to have a periprosthetic right distal femur fracture with significant displacement as well as a right distal radius fracture. After discussion with the patient, plans were made for open reduction internal fixation of her femur fracture as well as open reduction internal fixation of her distal radius fracture to help facilitate postoperative ambulation. Preoperatively, consents were signed and questions were answered. Procedure: Patient was brought to the operating theater to address both her comminuted distal femur periprosthetic fracture on the right as well as her comminuted intra-articular right distal radius fracture. After discussion with the patien t, election was made to proceed with open reduction internal fixation of both fractures to facilitate ambulation and healing. Risks and complications of both procedures were discussed with the patient. At the time the wrist was addressed, we had completed the open reduction internal fixation of the femur. Anesthesia was administered in the form of general intubated, ASA 3. This was uneventful. Following repair of the femur, attention was directed to the right wrist. The wrist was prepped and draped in the usual fashion. The arm was exsanguinated, and the tourniquet was elevated to 250 mmHg for a total tourniquet time of 33 minutes. The patient was also given Ancef 2 g preoperatively prior to her open reduction internal fixation of the femur, and it was still timely for the distal radius. The arm was prepped and draped with DuraPrep in usual fashion with the arm draped free prior to draping and elevation of the tourniquet. A surgical pause was performed. At the time, the surgical pause, we confirmed the site and side of surgery. We also confirmed the patient's identity, appropriate and timely administration of preoperative antibiotics and preoperative surgical markings. Fluoroscopy was used throughout the surgical procedure. The fracture pattern was marked out on the patient's arm with a marker. Incision was then made appropriate to begin slightly distal to the distal end of the radius continuing across the fracture. Fluoroscopy was used to determine appropriate plate size, and this was an extra short narrow right [place] volar distal radius plate, 3- hole. Dissection continued through skin and soft tissues using a scalpel. Essentially, the fracture made its own plane through the soft tissues. After initial skin incision, we were able to open the soft tissues primarily with just my finger. Elevation was accomplished of soft tissues off the distal radius and radial shaft. Retractors were placed. Manipulation of the fracture using a [place] was accomplished and we were able to obtain a nearly anatomic reduction, and appropriate size plate was chosen. The plate chosen was an extra short narrow [place] volar plate. This was held in position with a freer elevator and positioning was confirmed with fluoroscopy. Once the fracture was reduced, the plate was pinned in position and subsequently attached with standard AO technique utilizing 1 nonlocking screw and the remainder being locking screws. Fluoroscopy was used throughout the surgical procedure, and once the plate was in appropriate position and all screw holes were filled, the wound was copiously irrigated with half percent bupivacaine plain. This was also injected into the subcutaneous tissues. The fracture was noted to be stable once the plate was in position. Attention was directed to closure. The surgical incision was irrigated with normal saline containing Ancef. It was then closed with combination of 3-0 Monocryl in the subcutaneous tissues and a subcuticular closure was accomplished. This was followed by Dermabond, OpSite, fluffed fluffs, sterile soft roll, and an [place] wrap. The tourniquet was released after 33 minutes. There were no complications. There were no specimens. The procedure was well tolerated. Related Problem List Diagnoses (1) Closed fracture of distal ends of right radius and ulna:
[2023-05-08 21:36] LABS: Glucose Point of Care 206 mg/dL (70-110)
[2023-05-08] MEDS: pantoprazole DR 40 mg Tablet PO (21:54)
[2023-05-08] MEDS: atorvastatin 40 mg Tablet PO (21:54)
[2023-05-08] MEDS: metformin 500 mg Tablet 1000 MG PO (21:54)
[2023-05-08] MEDS: gabapentin 300 mg Capsule 600 MG PO (21:54)
[2023-05-08] MEDS: CELEcoxib 200 mg Capsule PO (21:54)
[2023-05-08] MEDS: iron polysaccharide complex 150 mg Capsule PO (21:55)
[2023-05-08] MEDS: sennosides-docusate Tablet 2 TAB PO (21:56)
[2023-05-08] MEDS: sodium chloride 0.9% 1,000 ML 75 ML IV (22:22)
[2023-05-08] MEDS: chlorhexidine gluconate 0.12% Btl 473 mL 30 ML MUCOUS MEM (23:26)
[2023-05-08] MEDS: citalopram 20 mg Tablet PO (23:26)
[2023-05-08] MEDS: mupirocin oint 22 gm 1 APPLIC NASAL (23:26)
[2023-05-09] VITALS (7 sets, daily range): BP systolic 105–129; BP diastolic 23–75; PULSE 58–96; RESP 16–18; TEMP 36.6–37.1; O2SAT 91–95; BMI 34.1
[2023-05-09] MEDS: tranexamic acid 1,000 MG/100 ML PREMIX 600 MG IV (01:05)
[2023-05-09] MEDS: acetaminophen 1,000 MG/100 ML PIGGYBACK 400 MG IV ×2 (04:03→12:04)
[2023-05-09 05:49] LABS: Basophils % 0.2 %; Hematocrit 28.9 % (36-47); Lymphocytes # 1.3 10^3/uL (0.8-4.8); Lymphocytes % 9.6 %; Mean Corpuscular HGB Conc 32.2 g/dL (30-55); Mean Corpuscular Hemoglobin 30.7 pg (27-33); Mean Corpuscular Volume 95.4 fl (85-98); Mean Platelet Volume 10.6 fL (7.4-10.4); Monocytes # 1.4 10^3/uL (0.2-0.9); Monocytes % 10.5 %; Neutrophils # 10.32 10^3/uL (1.8-7.7); Neutrophils % 79.3 %; Nucleated Red Blood Cells % 0 %; Platelet Count 255 10^3/cmm (157-399); Red Blood Count 3.03 10^6/uL (3.85-5.65); Red Cell Distribution Width 14.4 % (12.1-15.1)
[2023-05-09 06:05] LABS: Alanine Aminotransferase 24 U/L (0-33); Albumin Level 3.4 g/dL (3.5-5.2); Alkaline Phosphatase 62 U/L (35-105); Aspartate Amino Transferase 23 U/L (0-32); Blood Urea Nitrogen 31 mg/dL (8-23); Calcium 7.6 mg/dL (8.5-10.5); Carbon Dioxide 20 mmol/L (22-29); Chloride 106 mmol/L (98-107); Globulin 2.3 g/dL (1.3-4.6); Glomerular Filtration Rate 49.4 mL/min (90-130); Glucose 136 mg/dL (65-115); Osmolality Calculated 301 mOsm/kg (285-295); Sodium 141 mmol/L (136-145); Total Bilirubin 0.3 mg/dL (0.15-1.2); Total Protein 5.7 g/dL (6.6-8.7)
[2023-05-09] MEDS: CELEcoxib 200 mg Capsule PO (06:50)
[2023-05-09] MEDS: ceFAZolin 2,000 MG in sodium chloride 0.9% (plus) 50 ML 100 MG IV ×2 (06:51→14:53)
[2023-05-09 07:12] LABS: Glucose Point of Care 139 mg/dL (70-110)
[2023-05-09] MEDS: multivitamin therapeutic Tablet 1 TAB PO (08:19)
[2023-05-09] MEDS: pantoprazole DR 40 mg Tablet PO ×2 (08:19→18:01)
[2023-05-09] MEDS: sennosides-docusate Tablet 2 TAB PO ×2 (08:19→18:01)
[2023-05-09] MEDS: iron polysaccharide complex 150 mg Capsule PO ×2 (08:19→18:01)
[2023-05-09] MEDS: cholecalciferol (vitamin D3) 1,000 unit Tablet 1000 UNIT PO (08:20)
[2023-05-09] MEDS: aspirin 325 mg EC Tablet PO (08:20)
[2023-05-09] MEDS: chlorhexidine gluconate 0.12% Btl 473 mL 30 ML MUCOUS MEM ×4 (08:20→20:04)
[2023-05-09] MEDS: mupirocin oint 22 gm 1 APPLIC NASAL ×2 (08:21→18:02)
--- NOTE | 2023-05-09 09:38 | P.PN_ITS ---
Documented by User: FRANKIE Hernandez STDANABELL 05/09/23 10:52 Subjective 2 Subjective: Rosette Harrington is a 67-year-old female who presents to the hospital after patient sustained a distal R radius and distal right femur fracture after fall on the ice yesterday morning. She is seen today after orthopedic surgery for both fractures. Surgery went well was uneventful. Patient has had R knee replacement and L knee hardware placed in the past. Patient reports no numbness, tingling or temperature changes, weakness or swelling in R lower or upper extremities. No syncopal episodes, SOB, new bruises, headaches, fever or unpredicted pain noted. Patient's pain is controlled. Vitals/I&O/Wt Last Vital Signs Temp 98.5 F 05/09/23 09:36 Pulse 58 L 05/09/23 09:36 Resp 18 05/09/23 09:36 BP 126/23 05/09/23 09:36 Pulse Ox 95 05/09/23 09:36 O2 Del Method Room Air 05/09/23 09:36 05/08/23 05/09/23 05/09/23 22:59 06:59 14:59 Intake Total 1740 / 1840 350 / 2190 110 / 110 Output Total 3 / 3 525 / 528 Balance 1737 / 1837 -175 / 1662 110 / 110 Weight last 48 hrs Weight 176 lb Weight 174 lb 12.8 oz Weight 174 lb 12.8 oz Weight 155 lb Physical Exam 2 Const: COMMON NORMALS: no acute distress, patient oriented x3 (No focal deficits) and alert GENERAL APPEARANCE: cooperative HENMT: OTHER: Normocephalic atraumatic, Eye: OTHER: Extraocular movements intact Neck/C-Spine: COMMON NORMALS: no JVD Lymph: OTHER: No lymphadenopathy Chest: OTHER: normal Resp: COMMON NORMALS: normal respiratory effort and clear to auscultation bilaterally EFFORT & INSPECTION: Yes able to speak in complete sentences A USCULTATION: clear to auscultation bilaterally Cardio: COMMON NORMALS: no JVD, regular rate and regular rhythm RATE: r egular rate RHYTHM: regular rhythm OTHER: 2/6 systolic flow murmur unchanged from preop examination GI: OTHER: Normal bowel sounds : OTHER: Deferred Back/Pelvis: OTHER: Deferred Extremity: NARRATIVE EXTREMITY EXAM: Splinted R knee and R wrist, with SHARRON wraps Normal sensation and perfusion R upper and lower extremities, capillary refill <1 sec R Lower extremity NO edema in Extremities bilaterally upper or lower NO significant weakness noted No weight bearing on R leg No weighted use of R wrist Neuro: COMMON NORMALS: patient oriented x3 (No focal deficits) S ENSORIUM/ORIENTATION: Yes alert Skin: NARRATIVE SKIN EXAM: no bruising in extra surgical sites, no jaundice Data 05/09/23 05:26 05/09/23 05:26 A&P Assessment and plan (1) Right femoral fracture: Qualifiers: Encounter type: initial encounter Femur location: unspecified portion of femur Fracture morphology: unspecified fracture morphology Fracture type: c losed Qualified Code(s): S72.91XA - Unspecified fracture of right femur, initial encounter for closed fracture (2) Right radial fracture: Qualifiers: Encounter type: initial encounter Fracture morphology: unspecified fracture morphology Fracture type: closed Radius location: distal Qualified Code(s): S52.501A - Unspecified fracture of the lower end of right radius, initial encounter for closed fracture (3) Diabetes mellitus type 2 in nonobese: (4) Abnormal EKG: Plan Patient had right distal radius fracture and right distal femur fracture repaired by orthopedic surgery. no complications at this time. Hold lisinopril metformin and any as needed NSAIDs to prevent renal dysfunction and low blood pressure postop Recent EKG showed inverted T waves changed from last normal EKG patient is asymptomatic, obtained heart ultrasound, results pending DVT prophylaxis with eliquis 10mg 1wk 10mg bid 1 week PT and Orthopedic surgery will follow in hospital to determine if patient can be discharged home with no weight-bearing Follow-up with PT and orthopedic surgery outpatient Coding Level of Care Code 05102 Diagnoses Right femoral fracture S72.91XA Encounter type: initial encounter Femur location: unspecified portion of femur Fracture morphology: unspecified fracture morphology Fracture type: closed Right radial fracture S52.501A Encounter type: initial encounter Fracture morphology: unspecified fracture morphology Fracture type: closed Radius location: distal Diabetes mellitus type 2 in nonobese E11.9 Abnormal EKG R94.31 Time Spent (min) 21 Documented by User: Rodger Orosco MD 05/09/23 11:03 Subjective 2 Medications: Reviewed: Yes Data 05/09/23 05:26 05/09/23 05:26 A&P Assessment and plan (1) Right femoral fracture: Patient presents with a mechanical fall, sustaining right femur fracture, distally as well as right radial fracture Orthopedic consult appreciated From my understanding she is currently in surgery DVT prophylaxis to be arranged by orthopedic physician following surgery. They are using aspirin. Pain control Discharge planning Hold lisinopril, monitoring blood pressure before potentially giving tomorrow. CBC, BMP in the morning to look for postoperative anemia, fluid management Qualifiers: Encounter type: initial encounter Femur location: unspecified portion of femur Fracture morphology: unspecified fracture morphology Fracture type: c losed Qualified Code(s): S72.91XA - Unspecified fracture of right femur, initial encounter for closed fracture (2) Right radial fracture: Splint was placed in ER See above Qualifiers: Encounter type: initial encounter Fracture morphology: unspecified fracture morphology Fracture type: closed Radius location: distal Qualified Code(s): S52.501A - Unspecified fracture of the lower end of right radius, initial encounter for closed fracture (3) Diabetes mellitus type 2 in nonobese: Sliding scale insulin Consistent carb diet (4) Abnormal EKG: Echocardiogram will be obtained. This is currently pending She has had no chest pain, no direct contraindications to surgery Plan Patient had right distal radius fracture and right distal femur fracture repaired by orthopedic surgery. no complications at this time. Hold lisinopril metformin and any as needed NSAIDs to prevent renal dysfunction and low blood pressure postop Recent EKG showed inverted T waves changed from last normal EKG patient is asymptomatic, obtained heart ultrasound, results pending DVT prophylaxis with aspirin per surgery PT and Orthopedic surgery will follow in hospital to determine if patient can be discharged home with no weight-bearing Follow-up with PT and orthopedic surgery outpatient Attestations 2 Medical Necessity Statement*: Needs continued hospital stay, for close follow-up following orthopedic surgery Diagnoses Right femoral fracture S72.91XA Encounter type: initial encounter Femur location: unspecified portion of femur Fracture morphology: unspecified fracture morphology Fracture type: closed Right radial fracture S52.501A Encounter type: initial encounter Fracture morphology: unspecified fracture morphology Fracture type: closed Radius location: distal Diabetes mellitus type 2 in nonobese E11.9 Abnormal EKG R94.31 Time Spent (min) 21
[2023-05-09 11:48] LABS: Glucose Point of Care 138 mg/dL (70-110)
[2023-05-09] MEDS: sodium chloride 0.9% 1,000 ML 75 ML IV (12:39)
--- NOTE | 2023-05-09 13:23 | P.PN_ITS ---
Subjective 2 Subjective: Patient is seen in her room today. Dressings are dry and intact. Discussion is undertaken with the patient regarding her desire for discharge to home if she feels comfortable or perhaps the need for discharge to detention. At the present time, the patient is concerned about falling, and she is not confident that she will be able to function at home. Medications: Reviewed: Yes Vitals/I&O/Wt Last Vital Signs Temp 98.8 F 05/09/23 12:00 Pulse 66 05/09/23 12:00 Resp 18 05/09/23 12:00 BP 111/75 05/09/23 12:00 Pulse Ox 94 05/09/23 12:00 O2 Del Method Room Air 05/09/23 12:00 05/08/23 05/09/23 05/09/23 22:59 06:59 14:59 Intake Total 1740 / 1840 350 / 2190 1448 / 1448 Output Total 525 / 528 Balance 1737 / 1837 -175 / 1662 1448 / 1448 Weight last 48 hrs Weight 176 lb Weight 174 lb 12.8 oz Weight 174 lb 12.8 oz Weight 155 lb Physical Exam 2 Const: COMMON NORMALS: no acute distress, average body habitus, patient oriented x3 and alert GENERAL APPEARANCE: cooperative and comfortable O RIENTATION/CONSCIOUSNESS: Yes awake HENMT: COMMON NORMALS: normocephalic and atraumatic HEAD & SCALP: n ormocephalic and atraumatic Eye: GENERAL EYE: appearance normal, both eyes and all related structures Chest: COMMONS NORMALS: normal inspection of the chest Resp: COMMON NORMALS: normal respiratory effort EFFORT & INSPECTION: Yes able to speak in complete sentences and Yes symmetric chest movement Extremity: RIGHT UPPER EXTREMITY: Yes wrist (Patient's dressing is dry and intact) Right wrist: Yes ROM (Not evaluated) and Yes neurovascular exam (Intact distal to the fracture) RIGHT LOWER EXTREMITY: Yes upper leg (Dressing is dry and intact) Right upper leg: Yes palpation (Minimal tenderness) and Yes neurovascular exam (Intact distally with no evidence of DVT) and Yes knee joint Neuro: COMMON NORMALS: patient oriented x3 SENSORIUM/ORIENTATION: Yes alert Psych: COMMON NORMALS: mental status grossly normal APPEARANCE: Yes grossly normal ATTITUDE: Yes calm and Yes engaged ATTENTION/CONCENTRATION: Yes attention grossly intact Skin: COMMON NORMALS: no rashes or lesions noted GENERAL SKIN EXAM: no rashes or lesions noted Data 05/10/23 03:25 05/10/23 03:25 A&P Assessment and plan (1) Periprosthetic fracture around internal prosthetic knee joint: Patient underwent open reduction internal fixation of both her periprosthetic right femur fracture as well as her right distal radius fracture. This was accomplished on the day of admission from the emergency department. She is seen on today, postop day 1. She is working with physical therapy, but she has concerns regarding her ability to function at home as she has a fear of falling. Will continue to have her work with physical therapy. We will fit her with a splint in addition to the soft wrap on her right wrist to see if this gives her more confidence with the platform walker. She will need to remain nonweightbearing with regards to her extremity fractures. (2) Closed fracture of distal ends of right radius and ulna: I will have the patient fitted for a cock up wrist splint. Dressings will be changed prior to her discharge. Qualifiers: Encounter type: initial encounter Qualified Code(s): S52.501A - Unspecified fracture of the lower end of right radius, initial encounter for closed fracture; S52.601A - Unspecified fracture of lower end of right ulna, initial encounter for closed fracture (3) Status post total right knee replacement not using cement: Attestations 2 Medical Necessity Statement*: Per hospitalist team and physical therapy Coding Level of Care Code Acute Code for [facility] Diagnoses Periprosthetic fracture around internal prosthetic knee joint M97.8XXA; Z96.659 Closed fracture of distal ends of right radius and ulna, initial encounter S52.501A; S52.601A Encounter type: initial encounter Status post total right knee replacement not using cement Z96.651
[2023-05-09 17:33] LABS: Glucose Point of Care 146 mg/dL (70-110)
[2023-05-09] MEDS: atorvastatin 40 mg Tablet PO (18:01)
[2023-05-09] MEDS: insulin lispro 100 unit/1 mL SUBCUT ×2 (18:02→21:21)
--- NOTE | 2023-05-09 18:17 | PC.NURSE ---
Lackey was discontinued this am by shift supervisor film processing staff. Pt voiding without difficulty.
[2023-05-09] MEDS: acetaminophen 500 mg Tablet 1000 MG PO (20:04)
[2023-05-09] MEDS: citalopram 20 mg Tablet PO (20:04)
[2023-05-09 20:50] LABS: Glucose Point of Care 183 mg/dL (70-110)
[2023-05-10] VITALS: BP 108/71; PULSE 64; RESP 17; TEMP 36.7; O2SAT 94
[2023-05-10] MEDS: sodium chloride 0.9% 1,000 ML 75 ML IV (03:42)
[2023-05-10 03:49] LABS: Basophils # 0.1 10^3/uL (0.0-0.1); Basophils % 0.5 %; Eosinophils # 0.1 10^3/uL (0.0-0.8); Eosinophils % 1.3 %; Hematocrit 30.2 % (36-47); Lymphocytes # 1.8 10^3/uL (0.8-4.8); Lymphocytes % 16.5 %; Mean Corpuscular HGB Conc 30.8 g/dL (30-55); Mean Corpuscular Volume 97.4 fl (85-98); Mean Platelet Volume 11.1 fL (7.4-10.4); Monocytes # 1.2 10^3/uL (0.2-0.9); Monocytes % 10.6 %; Neutrophils # 7.66 10^3/uL (1.8-7.7); Neutrophils % 70.8 %; Nucleated Red Blood Cells % 0 %; Platelet Count 235 10^3/cmm (157-399); Red Cell Distribution Width 14.5 % (12.1-15.1); White Blood Count 10.81 10^3/uL (3.29-11.43)
[2023-05-10 04:00] VITALS: BP 171/81; PULSE 66; RESP 18; TEMP 36.8; O2SAT 96
[2023-05-10 04:14] LABS: Anion Gap 14.8 (5-19); Blood Urea Nitrogen 23 mg/dL (8-23); Calcium 7.9 mg/dL (8.5-10.5); Carbon Dioxide 23 mmol/L (22-29); Chloride 110 mmol/L (98-107); Glomerular Filtration Rate 71.3 mL/min (90-130); Glucose 140 mg/dL (65-115); Osmolality Calculated 304 mOsm/kg (285-295); Potassium 3.8 mmol/L (3.5-5.1); Sodium 144 mmol/L (136-145)
[2023-05-10] MEDS: atenolol 50 mg Tablet PO (06:00)
[2023-05-10] MEDS: amlodipine 10 mg Tablet PO (06:00)
[2023-05-10 06:27] LABS: Glucose Point of Care 158 mg/dL (70-110)
[2023-05-10 08:00] VITALS: BP 165/80; PULSE 57; RESP 16; TEMP 36.9; O2SAT 95
--- NOTE | 2023-05-10 08:18 | P.PN_ITS ---
Subjective 2 Subjective: Rosette Harrington is a 67-year-old female with past history of fall on the ice to 2 days ago sustaining distal radius fracture and distal femur fracture on the right, and is recovering well from orthopedic surgery, which was uneventful. She reports feeling well today, and is seeing PT to strengthen her left leg and is slightly sore after surgery. Patient received a splint for her right wrist yesterday from orthopedic surgery. And is healing well, without complaint. Vitals/I&O/Wt Last Vital Signs Temp 98.4 F 05/10/23 08:00 Pulse 57 L 05/10/23 08:00 Resp 16 05/10/23 08:00 BP 165/80 05/10/23 08:00 Pulse Ox 95 05/10/23 08:00 O2 Del Method Room Air 05/10/23 04:00 05/09/23 05/10/23 05/10/23 22:59 06:59 14:59 Intake Total 290 / 1738 1000 / 2738 Output Total 700 / 1000 Balance -410 / 738 1000 / 1738 Weight last 48 hrs Weight 173 lb 6 oz Weight 176 lb Weight 174 lb 12.8 oz Weight 174 lb 12.8 oz Physical Exam 2 Narrative: General alert pleasant oriented to person place and time HEENT normocephalic atraumatic Neck normal range of movement no pain Respiratory normal breath sounds no shortness of breath Cardiac normal rate and rhythm, 2/6 systolic flow murmur Extremities capillary refill less than 1 second and normal sensation in right upper and lower extremity, able to move toes and fingers with without pain on R, able to stand on left leg, no weight bearing on right, right wrist is splinted Neuro no focal deficit Data 05/10/23 03:25 05/10/23 03:25 A&P Assessment and plan Plan Patient sustained a right distal femur fracture and is healing well from orthopedic surgery, is not weightbearing on the right and will continue following with Orthopedic surgery and PT for this Patient sustained right distal radius fracture and is healing well from orthopedic surgery, wrist is in splint, continue with PT and OT to retain function in her right hand Continue aspirin 325 for DVT prophylaxis Hold metformin while in hospital in case of use of contrast dye needed Restart lisinopril as risk of low blood pressure post op is no longer a concern Patient wants to be discharged to a nursing facility for couple weeks to make sure she does not fall again as she recovers from surgery, pending insurance coverage Coding Level of Care Code Acute Code for [facility]
[2023-05-10] MEDS: insulin lispro 100 unit/1 mL SUBCUT (08:19)
[2023-05-10] MEDS: mupirocin oint 22 gm 1 APPLIC NASAL (08:19)
[2023-05-10] MEDS: iron polysaccharide complex 150 mg Capsule PO (08:20)
[2023-05-10] MEDS: pantoprazole DR 40 mg Tablet PO (08:20)
[2023-05-10] MEDS: sennosides-docusate Tablet 2 TAB PO (08:20)
[2023-05-10] MEDS: cholecalciferol (vitamin D3) 1,000 unit Tablet 1000 UNIT PO (08:20)
[2023-05-10] MEDS: aspirin 325 mg EC Tablet PO (08:20)
[2023-05-10] MEDS: chlorhexidine gluconate 0.12% Btl 473 mL 30 ML MUCOUS MEM (08:20)
[2023-05-10] MEDS: multivitamin therapeutic Tablet 1 TAB PO (08:20)
--- NOTE | 2023-05-10 09:36 | P.DS_ITS ---
Discharge Providers Date of Admission: 05/08/23 15:58 Date of Discharge: May 10, 2023 Attending Provider at Admission: La Malik MD Attending Provider at Discharge: Rodger Orosco MD Diagnoses at Discharge Discharge Diagnosis (1) Periprosthetic fracture around internal prosthetic knee joint: Status: Acute (2) Status post total right knee replacement not using cement: Status: Acute Permanent problem details: The [place] total knee system with a size 2 triathlon beaded posterior stabilized femur right, a triathlon titanium tibial component size 2 beaded, a triathlon X3 posterior stabilized tibial bearing insert size 2 X 11 mm and a beaded triathlon titanium asymmetric patella size 29 x 9 mm Reason for Visit Reason for Visit: fall Hospital Course Hospital Course Rosette is a 67-year-old white female presenting after mechanical fall on ice on May 08 sustaining a radius fracture on the right as well as a right distal femur fracture. Orthopedics was consulted, and she underwent surgery for both of these fractures on May 08 without complication. The rest of her hospital course was spent in recovery, and she was able to be discharged home on May 10. She will be discharged home with a platform walker, knee brace, and will be nonweightbearing on her right leg. She will follow-up with Ortho per their instructions and her primary care provider in 3 to 5 days. She was given opportunity ask questions and agreed with the plan. An echo was done while she was in the hospital demonstrating mild aortic stenosis. This should be followed at least yearly initially by her primary care provider. She was instructed regarding this, and to bring this up at her visit. Physical Exam Narrative: General exam no distress Neck is supple no lymphadenopathy or megaly Cardiovascular regular rate and rhythm with a 2/6 systolic murmur Lungs clear Abdomen is soft Extremities no sinus clubbing edema, dressings intact Discharge Data Studies Completed and Pending Completed Studies During Hospitalization Category Date Time Status XR chest 1V portable [id number] Stat Exams 05/08/23 07:40 Completed XR hip RT 2-3V wo/w pel* [id number] Stat Exams 05/08/23 07:39 Completed XR knee RT 1-2V [id number] Routine Exams 05/08/23 Completed XR knee RT 3V* [id number] Stat Exams 05/08/23 05:46 Completed XR wrist RT 2V 15681 Routine Exams 05/08/23 Completed XR wrist RT min 3V* [id number] Stat Exams 05/08/23 05:46 Completed CV. echo complete* [id number] Routine Ultrasound 05/08/23 16:38 Completed Radiology Impressions Knee X-Ray 05/08/23 05:46 IMPRESSION: Fracture of the distal femur. Wrist X-Ray 05/08/23 05:46 IMPRESSION: Wrist fracture. Laboratory Results WBC 10.81 10^3/uL (3.29-11.43) 05/10/23 03:25 RBC 3.10 10^6/uL (3.85-5.65) L 05/10/23 03:25 Hgb 9.30 g/dL (11.27-16.99) L 05/10/23 03:25 Hct 30.2 % (36-47) L 05/10/23 03:25 MCV 97.4 fl (85-98) 05/10/23 03:25 MCH 30.0 pg (27-33) 05/10/23 03:25 MCHC 30.8 g/dL (30-55) 05/10/23 03:25 RDW 14.5 % (12.1-15.1) 05/10/23 03:25 Plt Count 235 10^3/cmm (157-399) 05/10/23 03:25 MPV 11.1 fL (7.4-10.4) H 05/10/23 03:25 Neut % (Auto) 70.8 % 05/10/23 03:25 Lymph % (Auto) 16.5 % 05/10/23 03:25 [place] % (Auto) 10.6 % 05/10/23 03:25 Eos % (Auto) 1.3 % 05/10/23 03:25 Baso % (Auto) 0.5 % 05/10/23 03:25 Neut # (Auto) 7.66 10^3/uL (1.8-7.7) 05/10/23 03:25 Lymph # (Auto) 1.8 10^3/uL (0.8-4.8) 05/10/23 03:25 [place] # (Auto) 1.2 10^3/uL (0.2-0.9) H 05/10/23 03:25 Eos # (Auto) 0.1 10^3/uL (0.0-0.8) 05/10/23 03:25 Baso # (Auto) 0.1 10^3/uL (0.0-0.1) 05/10/23 03:25 Nucleated RBC % (auto) 0 % 05/10/23 03:25 Nucleated RBCs # 0.0 /100WBC 05/10/23 03:25 Sodium 144 mmol/L (136-145) 05/10/23 03:25 Potassium 3.8 mmol/L (3.5-5.1) 05/10/23 03:25 Chloride 110 mmol/L (98-107) H 05/10/23 03:25 Carbon Dioxide 23 mmol/L (22-29) 05/10/23 03:25 Anion Gap 14.8 (5-19) 05/10/23 03:25 BUN 23 mg/dL (8-23) 05/10/23 03:25 Creatinine 0.8 mg/dL (0.5-0.9) 05/10/23 03:25 GFR Calculation 71.3 mL/min (90-130) L 05/10/23 03:25 Glucose 140 mg/dL (65-115) H 05/10/23 03:25 POC Glucose 158 mg/dL (70-110) H 05/10/23 06:24 Calculated Osmolality 304 mOsm/kg (285-295) H 05/10/23 03:25 Calcium 7.9 mg/dL (8.5-10.5) L 05/10/23 03:25 Total Bilirubin 0.3 mg/dL (0.15-1.2) 05/09/23 05:26 AST 23 U/L (0-32) 05/09/23 05:26 ALT 24 U/L (0-33) 05/09/23 05:26 Alkaline Phosphatase 62 U/L (35-105) 05/09/23 05:26 Total Protein 5.7 g/dL (6.6-8.7) L D 05/09/23 05:26 Albumin 3.4 g/dL (3.5-5.2) L 05/09/23 05:26 Globulin 2.3 g/dL (1.3-4.6) 05/09/23 05:26 Urine Color Yellow (Yellow) 05/08/23 10:37 Urine Appearance Clear (CLEAR) 05/08/23 10:37 Urine pH 5 (5-7) 05/08/23 10:37 Ur Specific [place] 1.025 (1.005-1.030) 05/08/23 10:37 Urine Protein Neg (Negative) 05/08/23 10:37 Urine Glucose (UA) 1+ (Normal) H 05/08/23 10:37 Urine Ketones Negative (Negative) 05/08/23 10:37 Urine Blood Neg (Negative) 05/08/23 10:37 Urine Nitrate Negative (Negative) 05/08/23 10:37 Urine Bilirubin Neg (Negative) 05/08/23 10:37 Urine Urobilinogen Norm mg/dL (Negative) 05/08/23 10:37 Ur Leukocyte Esterase Negative (Negative) 05/08/23 10:37 Vitals Last Vital Signs Temp 98.4 F 05/10/23 08:00 Pulse 57 L 05/10/23 08:00 Resp 16 05/10/23 08:00 BP 165/80 05/10/23 08:00 Pulse Ox 95 05/10/23 08:00 O2 Del Method Room Air 05/10/23 04:00 Discharge Plan Discharge Patient Disposition: Home Condition: Stable Prescriptions: New oxycodone 5 mg Tablet 5 mg PO Q4H PRN (Reason: Moderate Pain) Qty: 20 0RF aspirin 325 mg Tablet,Delayed Release (Dr/Ec) 325 mg PO DAILY Qty: 30 0RF Continued (DME) knee immobilizer See Rx Instructions .Route .MEDSUPPLY Qty: 1 0RF Rx Instructions: As directed (DME) HINGED KNEE BRACE See Rx Instructions .Route .MEDSUPPLY Qty: 1 0RF Rx Instructions: As directed citalopram 20 mg tablet 20 mg PO BEDTIME amlodipine 10 mg tablet 10 mg PO QAM metformin 1,000 mg tablet 1,000 mg PO BID hydrochlorothiazide 25 mg tablet 25 mg PO QAM lisinopril 40 mg tablet 40 mg PO QAM atenolol 50 mg tablet 50 mg PO QAM omeprazole 20 mg Tablet,Delayed Release (Dr/Ec) 20 mg PO BID atorvastatin 40 mg Tablet 40 mg PO QPM multivitamin Tablet 1 tab PO DAILY tizanidine 2 mg tablet 2 mg PO Q8H PRN (Reason: Muscle Spasticity) meloxicam 15 mg tablet 15 mg PO DAILY Discharge Orders: Discharge Order (Routine); Ordered 05/10/23 Ordered By: Rodger Orosco Other Ambulatory Orders: DME: Miscellaneous (Order) Location: None Selected Ordered By: Rodger Orosco DME: Wheelchair (Order) Location: None Selected Ordered By: Rodger Orosco Discharge Diet: Diabetic Discharge Activity: Increase activity as tolerated Patient Instructions: Opioid Safety Activity Restrictions/Additional Instructions: Orthopedic instructions per Ortho, no weightbearing right lower extremity Follow-up with Ortho per their instructions Follow-up with primary care provider 3 to 5 days Aspirin 325 mg a day for 30 days. Discharge Attestations Time Spent in Discharge Care*: greater than 30 min Quality Metrics Clinical Quality Measures [ No reported AMI, CVA or VTE this stay] Coding Level of Care Code 87928 Total time (in minutes) for Discharge: 41 Diagnoses Periprosthetic fracture around internal prosthetic knee joint M97.8XXA; Z96.659 Status post total right knee replacement not using cement Z96.651
[2023-05-10 11:06] LABS: Glucose Point of Care 158 mg/dL (70-110)
--- NOTE | 2023-05-10 11:55 | P.PN_ITS ---
Subjective 2 Subjective: Patient is seen in her room with a family member. She has worked with physical therapy, and she is gaining confidence on her ability to function at home. Also, we will attempt to obtain a wheelchair for home use. Medications: Reviewed: Yes Vitals/I&O/Wt Last Vital Signs Temp 98.4 F 05/10/23 08:00 Pulse 57 L 05/10/23 08:00 Resp 16 05/10/23 08:00 BP 165/80 05/10/23 08:00 Pulse Ox 95 05/10/23 08:00 O2 Del Method Room Air 05/10/23 04:00 05/09/23 05/10/23 05/10/23 22:59 06:59 14:59 Intake Total 290 / 1738 1000 / 2738 120 / 120 Output Total 700 / 1000 300 / 300 Balance -410 / 738 1000 / 1738 -180 / -180 Weight last 48 hrs Weight 173 lb 6 oz Weight 176 lb Weight 174 lb 12.8 oz Weight 174 lb 12.8 oz Physical Exam 2 Const: COMMON NORMALS: no acute distress, average body habitus, patient oriented x3 and alert GENERAL APPEARANCE: cooperative and comfortable O RIENTATION/CONSCIOUSNESS: Yes awake HENMT: COMMON NORMALS: normocephalic and atraumatic HEAD & SCALP: n ormocephalic and atraumatic Eye: GENERAL EYE: appearance normal, both eyes and all related structures Chest: COMMONS NORMALS: normal inspection of the chest Resp: COMMON NORMALS: normal respiratory effort EFFORT & INSPECTION: Yes able to speak in complete sentences and Yes symmetric chest movement Extremity: RIGHT UPPER EXTREMITY: Yes wrist (Large outer dressing is removed, splint refitted) Right wrist: Yes ROM (Not evaluated) and Yes neurovascular exam (Intact distally) RIGHT LOWER EXTREMITY: Yes upper leg (Large outer dressing is removed, minimal swelling) Right upper leg: Yes inspection (No significant ecchymosis), Yes neurovascular exam (Intact distally) and Yes other (No evidence of DVT.) Neuro: COMMON NORMALS: patient oriented x3 SENSORIUM/ORIENTATION: Yes alert Psych: COMMON NORMALS: mental status grossly normal APPEARANCE: Yes grossly normal ATTITUDE: Yes calm and Yes engaged ATTENTION/CONCENTRATION: Yes attention grossly intact Skin: COMMON NORMALS: no rashes or lesions noted GENERAL SKIN EXAM: no rashes or lesions noted Data 05/10/23 03:25 05/10/23 03:25 A&P Assessment and plan (1) Periprosthetic fracture around internal prosthetic knee joint: Patient underwent open reduction internal fixation of both her periprosthetic right femur fracture as well as her right distal radius fracture. This was accomplished on the day of admission from the emergency department. She is seen on today, postop day 2. She has vacillated between wishing to be discharged to home versus residential. After evaluation, she will need to remain nonweightbearing, and therapies at the skilled facility would be limited. She has good support at home, and we will attempt to obtain her a wheelchair for in- home use. Also, I have asked physical therapy to fit her with a [place] knee brace with range of motion from 0-45. They will teach her how to lock the brace if she feels that it is necessary, but this range of motion should allow her to more easily maintain a nonweightbearing status. The patient appears comfortable with discharge to home, and she understands the need for continued nonweightbearing status. (2) Closed fracture of distal ends of right radius and ulna: Dressings were removed, and the cock up wrist splint is refitted. Qualifiers: Encounter type: initial encounter Qualified Code(s): S52.501A - Unspecified fracture of the lower end of right radius, initial encounter for closed fracture; S52.601A - Unspecified fracture of lower end of right ulna, initial encounter for closed fracture (3) Status post total right knee replacement not using cement: Attestations 2 Medical Necessity Statement*: Patient is ready for discharge to home today with home health. Coding Level of Care Code Acute Code for [facility] Diagnoses Periprosthetic fracture around internal prosthetic knee joint M97.8XXA; Z96.659 Closed fracture of distal ends of right radius and ulna, initial encounter S52.501A; S52.601A Encounter type: initial encounter Status post total right knee replacement not using cement Z96.651
--- NOTE | 2023-05-10 12:26 | PC.NURSE ---
Wheelchair delivered by HOME. Brace placed on right lower extremity per Dr. Malik and Esteban in [facility]. Home Health Referral pending. Antonietta in Case Mgt. states do not delay discharge. [facility] Case Mgt. office will work on that referral this afternoon. Discharge instructions provided. NO questions or concerns at this time. Pt. to private vehicle via wheelchiar with family at side. All belongings with pt.
[2023-05-10 12:28] VITALS: BP 165/80; PULSE 57; RESP 16; TEMP 36.9; O2SAT 95
== END 2023-05-10 12:29 | disposition home health service (06) | DRG 481 ==
LOC: ER 11:22 → OR 11:29 → MEDSURG 16:11
PROVIDERS: Admitting Provider Specialist; Emergency Provider Family Medicine; Visit Provider Internal Medicine
PROC: 0QSB04Z Reposition Right Lower Femur with Internal Fixation Device, Open Approach (ICD-10-PCS; principal; 2023-05-08 14:20)
PROC: 0QSB04Z Reposition Right Lower Femur with Internal Fixation Device, Open Approach (ICD-10-PCS; 2023-05-08 14:20)
DX: S72.401A Unspecified fracture of lower end of right femur, initial encounter for closed fracture (principal); M97.11XA Periprosthetic fracture around internal prosthetic right knee joint, initial encounter; S52.571A Other intraarticular fracture of lower end of right radius, initial encounter for closed fracture; W00.0XXA Fall on same level due to ice and snow, initial encounter; Y92.89 Other specified places as the place of occurrence of the external cause; K21.9 Gastro-esophageal reflux disease without esophagitis; F32.A Depression, unspecified; F41.9 Anxiety disorder, unspecified; E78.00 Pure hypercholesterolemia, unspecified; I10 Essential (primary) hypertension; E11.9 Type 2 diabetes mellitus without complications; Z96.653 Presence of artificial knee joint, bilateral
CPT/HCPCS: 36415; 36416; 71045; 73100; 73110; 73502; 73560; 73562; 76000; 80048; 80053; 81003; 82962; 85025; 93005; 93306; 96365; 96372; 96375; 97116; 97162; 97165; 97530; 97760; 99285; C1713; J0131; J0690; J1100; J1815; J2270; J2405; J2795; J3010; J3370; J3490; J7030; L1820; L3908; P9047

== ENCOUNTER → 2023-05-30 08:51 | Outpatient (BNVA) | payer MEDICARE, SELFPAY | PROVIDERS: PCP Registered Nurse; Visit Provider Specialist | DX: Z98.890 Other specified postprocedural states (principal); M24.561 Contracture, right knee; M97.8XXD Periprosthetic fracture around other internal prosthetic joint, subsequent encounter; Z96.651 Presence of right artificial knee joint; S72.91XD Unspecified fracture of right femur, subsequent encounter for closed fracture with routine healing; S52.501D Unspecified fracture of the lower end of right radius, subsequent encounter for closed fracture with routine healing; S52.601D Unspecified fracture of lower end of right ulna, subsequent encounter for closed fracture with routine healing; X58.XXXD Exposure to other specified factors, subsequent encounter | CPT/HCPCS: 73110; 73562; 99024 ==

== ENCOUNTER → 2023-06-20 09:59 | Outpatient (BNVA) | payer MEDICARE, SELFPAY | PROVIDERS: PCP Registered Nurse; Visit Provider Nurse Practitioner | DX: S52.501A Unspecified fracture of the lower end of right radius, initial encounter for closed fracture (principal); S52.601A Unspecified fracture of lower end of right ulna, initial encounter for closed fracture; Z96.651 Presence of right artificial knee joint; M97.8XXA Periprosthetic fracture around other internal prosthetic joint, initial encounter; S72.91XA Unspecified fracture of right femur, initial encounter for closed fracture; X58.XXXA Exposure to other specified factors, initial encounter | CPT/HCPCS: 73110; 73562; 99024 ==

== ENCOUNTER → 2023-08-01 12:58 | Outpatient (BNVA) | payer MEDICARE, SELFPAY | PROVIDERS: PCP Registered Nurse; Visit Provider Specialist | DX: S72.91XD Unspecified fracture of right femur, subsequent encounter for closed fracture with routine healing; M97.8XXD Periprosthetic fracture around other internal prosthetic joint, subsequent encounter; Z96.651 Presence of right artificial knee joint; S52.501D Unspecified fracture of the lower end of right radius, subsequent encounter for closed fracture with routine healing; S52.601D Unspecified fracture of lower end of right ulna, subsequent encounter for closed fracture with routine healing; X58.XXXD Exposure to other specified factors, subsequent encounter | CPT/HCPCS: 73110; 73562; 99024 ==

== ENCOUNTER → 2023-10-10 12:56 | Outpatient (BNVA) | payer MEDICARE, SELFPAY | PROVIDERS: PCP Registered Nurse; Visit Provider Nurse Practitioner | DX: M97.8XXD Periprosthetic fracture around other internal prosthetic joint, subsequent encounter; Z96.651 Presence of right artificial knee joint; S72.401K Unspecified fracture of lower end of right femur, subsequent encounter for closed fracture with nonunion; S52.501D Unspecified fracture of the lower end of right radius, subsequent encounter for closed fracture with routine healing; S52.601D Unspecified fracture of lower end of right ulna, subsequent encounter for closed fracture with routine healing; X58.XXXD Exposure to other specified factors, subsequent encounter | CPT/HCPCS: 73110; 73562; 99214 ==

== ENCOUNTER → 2023-12-10 08:48 | Outpatient (BNVA) | payer MEDICARE, SELFPAY | PROVIDERS: PCP Registered Nurse; Visit Provider Nurse Practitioner | DX: M97.8XXA Periprosthetic fracture around other internal prosthetic joint, initial encounter (principal); Z96.659 Presence of unspecified artificial knee joint; S72.401K Unspecified fracture of lower end of right femur, subsequent encounter for closed fracture with nonunion; X58.XXXA Exposure to other specified factors, initial encounter; X58.XXXD Exposure to other specified factors, subsequent encounter | CPT/HCPCS: 73562; 99213 ==

== ENCOUNTER → 2023-12-31 07:56 | Outpatient (BNVA) | payer MEDICARE, SELFPAY | PROVIDERS: PCP Registered Nurse; Visit Provider Nurse Practitioner | DX: M97.8XXA Periprosthetic fracture around other internal prosthetic joint, initial encounter (principal); S72.401K Unspecified fracture of lower end of right femur, subsequent encounter for closed fracture with nonunion; S52.501D Unspecified fracture of the lower end of right radius, subsequent encounter for closed fracture with routine healing; S52.601D Unspecified fracture of lower end of right ulna, subsequent encounter for closed fracture with routine healing; Z96.659 Presence of unspecified artificial knee joint; X58.XXXA Exposure to other specified factors, initial encounter; X58.XXXD Exposure to other specified factors, subsequent encounter | CPT/HCPCS: 73110; 73562; 99213 ==

== ENCOUNTER 2024-02-27 14:13 | Outpatient (CLI) | payer MEDICARE, SELFPAY ==
--- NOTE | 2024-02-27 14:20 | MM_ITS ---
WS: [id number] Bilateral screening 3D tomosynthesis digital mammogram, 02/27/2024 2:21 PM Clinical Data: SCREENING Comparison: 02/08/2023, 09/16/2019, 05/29/2018, 04/27/2016, 11/26/2013. Findings: No spiculated masses or clustered calcifications are seen. There are no secondary signs of carcinoma . MM/MM scr BI tomosynthesis [id number] Impression: Negative bilateral mammogram unchanged. Recommend annual screening mammograms. BIRADS: 1 - Negative. FOLLOW UP: 1 Year Follow-up DENSITY: There are scattered areas of fibroglandular density. The CAD swatch checker was used
== END 2024-02-27 14:14 | disposition home or self-care (01) ==
LOC: MOBLMAM 14:18
PROVIDERS: PCP Nurse Practitioner Family; Visit Provider Nurse Practitioner Family
DX: Z12.31 Encounter for screening mammogram for malignant neoplasm of breast (principal)
CPT/HCPCS: 77063; 77067

== ENCOUNTER → 2024-03-31 12:58 | Outpatient (BNVA) | payer MEDICARE, SELFPAY | PROVIDERS: PCP Nurse Practitioner Family; Visit Provider Nurse Practitioner | DX: M97.8XXA Periprosthetic fracture around other internal prosthetic joint, initial encounter (principal); Z96.652 Presence of left artificial knee joint; S72.401K Unspecified fracture of lower end of right femur, subsequent encounter for closed fracture with nonunion; X58.XXXD Exposure to other specified factors, subsequent encounter | CPT/HCPCS: 73560; 73565; 99213 ==

== ENCOUNTER → 2024-04-30 08:56 | Outpatient (BNVA) | payer MEDICARE, SELFPAY | PROVIDERS: PCP Nurse Practitioner Family; Visit Provider Nurse Practitioner Family | DX: I10 Essential (primary) hypertension (principal); R53.83 Other fatigue; E11.9 Type 2 diabetes mellitus without complications; R01.1 Cardiac murmur, unspecified | CPT/HCPCS: 80053; 80061; 85025 ==

== ENCOUNTER 2024-05-26 07:52 | Outpatient (CLI) | payer MEDICARE, SELFPAY ==
--- NOTE | 2024-05-26 08:30 | USCV_ITS ---
Rosette Harrington Age: 68 Gender: F : 1955 Exam Date: 05/26/2024 08:38 Ordering Phys: Jeanette Singh-Farida LOZANO Technologist: CT Exam Location: [facility] [place] Indication: murmur BP: 134 / 84 HR: 53 Rhythm: Sinus Technical Quality: Adequate MEASUREMENTS (Male / Female) Normal Values 2D ECHO LVOT Diameter 2.0 cm LV Ejection Fraction MOD 4C 76.0 % LV Ejection Fraction MOD 2C 58.9 % LV Ejection Fraction 2C AL 60.7 % LA Diameter 3.8 cm LA Sys Volume AL 40.6 cm cubed LA Sys Volume Index AL 23.5 cm cubed/m squared Aorta at Sinotubular Diameter 2.1 cm IVC Diameter 2.2 cm M-MODE LA Ao Ratio MM 1.8 AV Cusp Separation MM 1.1 cm DOPPLER AV Peak Velocity 216.0 cm/s LVOT Peak Velocity 114.0 cm/s AV Area Cont Eq vti 1.8 cm squared AV Area Cont Eq pk 1.6 cm squared MV Peak Velocity 95.0 cm/s MV Area PHT 2.6 cm squared Mitral E to A Ratio 0.8 TR Peak Velocity 224.0 cm/s TR Peak Gradient 20.1 mmHg TR Mean Velocity 155.0 cm/s TR Mean Gradient 11.4 mmHg TR Velocity Time Integral 60.0 cm TV Peak E Velocity 59.0 cm/s PV Peak Velocity 106.0 cm/s FINDINGS Left Ventricle Normal left ventricular size and systolic function, EF 60%.. Mild left ventricular hypertrophy. Grade I/IV diastolic dysfunction (abnormal relaxation filling pattern), normal to mildly elevated filling pressures. Right Ventricle The right ventricle is normal in size and function. Right Atrium The right atrium is normal in size. Left Atrium Mildly increased left atrial size. Mitral Valve No gross abnormalities noted Aortic Valve . Mild aortic valve stenosis. Peak velocity of 2.48 m/s with a peak gradient of 25 mmHg. The valve area was calculated to be 1.8 cm squared.mild aortic valve calcification. Tricuspid Valve No gross abnormalities noted. Pulmonic Valve No gross abnormalities noted Pericardium Normal pericardium without effusion. Aorta Normal ascending aorta dimension. IVC Normal inferior vena cava. CONCLUSIONS Normal left ventricular size and systolic function, EF 60%.. Mild left ventricular hypertrophy. Grade I/IV diastolic dysfunction (abnormal relaxation filling pattern), normal to mildly elevated filling pressures. Mild aortic valve stenosis. Peak velocity of 2.48 m/s with a peak gradient of 25 mmHg. The valve area was calculated to be 1.8 cm squared. Mild aortic valve calcification There is no pericardial effusion. There are no intracardiac masses. Compared to the previous study from 05/08/2023, there may not be a significant change Dr Juan Mosley MD [facility] (Electronically Signed) Final Date: 26 May 2024 14:17 S
== END 2024-05-26 07:53 | disposition home or self-care (01) ==
LOC: RAD 07:54
PROVIDERS: PCP Nurse Practitioner Family; Visit Provider Nurse Practitioner Family
DX: R01.1 Cardiac murmur, unspecified (principal); R93.1 Abnormal findings on diagnostic imaging of heart and coronary circulation; I51.7 Cardiomegaly; I35.0 Nonrheumatic aortic (valve) stenosis; I35.8 Other nonrheumatic aortic valve disorders
CPT/HCPCS: 93306

== ENCOUNTER → 2024-06-20 09:47 | Outpatient (BNVA) | payer MEDICARE, SELFPAY | PROVIDERS: PCP Nurse Practitioner Family; Visit Provider Internal Medicine | DX: I35.0 Nonrheumatic aortic (valve) stenosis (principal); I10 Essential (primary) hypertension; E78.00 Pure hypercholesterolemia, unspecified | CPT/HCPCS: 99204 ==

== ENCOUNTER → 2024-06-25 10:23 | Outpatient (BNVA) | payer MEDICARE, SELFPAY | PROVIDERS: PCP Nurse Practitioner Family; Visit Provider Nurse Practitioner Family | DX: E11.9 Type 2 diabetes mellitus without complications (principal) | CPT/HCPCS: 83036 ==

== ENCOUNTER → 2024-06-30 12:46 | Outpatient (BNVA) | payer MEDICARE, SELFPAY | PROVIDERS: PCP Nurse Practitioner Family; Visit Provider Nurse Practitioner | DX: M97.8XXA Periprosthetic fracture around other internal prosthetic joint, initial encounter (principal); Z96.659 Presence of unspecified artificial knee joint; S72.401K Unspecified fracture of lower end of right femur, subsequent encounter for closed fracture with nonunion; X58.XXXA Exposure to other specified factors, initial encounter; X58.XXXD Exposure to other specified factors, subsequent encounter | CPT/HCPCS: 73560; 73565; 99213 ==

== ENCOUNTER → 2024-09-19 08:09 | Outpatient (BNVA) | payer MEDICARE, SELFPAY | PROVIDERS: PCP Nurse Practitioner Family; Visit Provider Nurse Practitioner Family | DX: E11.9 Type 2 diabetes mellitus without complications (principal); I10 Essential (primary) hypertension | CPT/HCPCS: 80053; 83036 ==

== ENCOUNTER → 2024-10-31 10:45 | Outpatient (BNVA) | payer MEDICARE, SELFPAY | PROVIDERS: PCP Nurse Practitioner Family; Visit Provider Nurse Practitioner | DX: S72.401G Unspecified fracture of lower end of right femur, subsequent encounter for closed fracture with delayed healing (principal); M97.8XXA Periprosthetic fracture around other internal prosthetic joint, initial encounter; Z96.659 Presence of unspecified artificial knee joint; X58.XXXD Exposure to other specified factors, subsequent encounter; Z96.651 Presence of right artificial knee joint | CPT/HCPCS: 73560; 73565; 99214 ==

== ENCOUNTER 2024-11-24 07:32 | Outpatient (CLI) | payer MEDICARE, SELFPAY ==
--- NOTE | 2024-11-24 08:00 | NM_ITS ---
WS: [id number] NUCLEAR MEDICINE BONE SCAN 3 phase Radiopharmaceutical: 23.6 Tc-99m MDP mCi IV Injection site: Antecubital Postinjection imaging delay: 2 hr CLINICAL INFORMATION: S/P right femur ORIF COMPARISON: None. FINDINGS: Bone lesions: Trace increased blood flow with more prominent blood pool and delayed bone activity involving the RIGHT distal femur fracture compatible with persistent bony remodeling with incomplete and persistent healing Normal delayed bony periarticular uptake about the LEFT tibial hardware. Soft tissue contours: Normal. Kidneys: Normal. Other findings: Thoracic curve. Degenerative type uptake about both AC joints. NM/NM bone 3 phase [id number] IMPRESSION: 1. Predominant increased blood pool and delayed bone activity involving the RI GHT distal femoral fracture compatible with persistent bony remodeling with inc omplete and persistent healing 2. Normal postop periarticular uptake about the LEFT tibial hardware
== END 2024-11-24 07:33 | disposition home or self-care (01) ==
LOC: RAD 07:36
PROVIDERS: PCP Nurse Practitioner Family; Visit Provider Nurse Practitioner
DX: M97.8XXD Periprosthetic fracture around other internal prosthetic joint, subsequent encounter (principal); Z96.651 Presence of right artificial knee joint; X58.XXXD Exposure to other specified factors, subsequent encounter
CPT/HCPCS: 78315; A9561

== ENCOUNTER → 2024-12-01 10:04 | Outpatient (BNVA) | payer MEDICARE, SELFPAY | PROVIDERS: PCP Nurse Practitioner Family; Visit Provider Nurse Practitioner | DX: Z96.651 Presence of right artificial knee joint (principal); M97.8XXA Periprosthetic fracture around other internal prosthetic joint, initial encounter; Z96.659 Presence of unspecified artificial knee joint; S72.401G Unspecified fracture of lower end of right femur, subsequent encounter for closed fracture with delayed healing; X58.XXXA Exposure to other specified factors, initial encounter; X58.XXXD Exposure to other specified factors, subsequent encounter | CPT/HCPCS: 99214 ==

== ENCOUNTER 2024-12-05 06:59 | Outpatient (CLI) | payer MEDICARE, SELFPAY ==
[2024-12-05 07:02] VITALS: BMI 30.2
--- NOTE | 2024-12-05 07:02 | ECG_ITS ---
[facility] Test Date: 2024-12-05 Pat Name: Rosette Harrington Department: Room: Gender: Female [employer] In[employer]: : 1955 Requested By: Krystian Munguia Order Number: [id number] Reading MD: DENNIS ARTEAGA Interpretive Statements Lung unchanged pre/post procedure; Intraprocedure shortess of breath; Symptoms resoled by discharge NOTE: Please note that this is the electrocardiogram portion of the Lexiscan/Sestamibi stress test. The perfusion scan will be documented separately. DATA: Baseline heart rate was 63 beats per minute. Baseline blood pressure was 155/81 millimeters of mercury. Target heart rate was 151. Maximum heart rate achieved was 122. which was 80% of the predicted target heart rate. Maximum blood pressure was 180/96 millimeters of mercury. The reason for ending the test was completion of the protocol. The patient did not experience any symptoms. ELECTROCARDIOGRAM: BASELINE: Sinus rhythm. Normal axis. Otherwise, no ST-T changes suggestive of ischemia noted. No arrhythmia noted. EXERCISE: After Lexiscan injection, no ST-T changes suggestive of ischemic noted. No arrhythmia noted. CONCLUSION: Please note due to baseline abnormality of the EKG specificity and sensitivity of the EKG portion of LexiScan MIBI stress test will be low 1. EKG not suggestive of ischemia 2. Lexiscan injection unremarkable. 3. Perfusion scan will be documented separately. Electronically Signed On 12-27-2024 16:02:42 CDT by DENNIS ARTEAGA [email or web address]
--- NOTE | 2024-12-05 07:02 | NMCV_ITS ---
NM jenn perf SPECT r/s* [id number] Rosette Harrington Age: 68 Gender: F : 1955 Exam Date: 12/05/2024 08:02 Ordering Phys: Krystian Munguia M.D ([email or web address]) Technologist: ROSELINE Barraza Exam Location: [facility] Indications: cp STRESS TEST Please see separate stress test report in [facility] for full findings IMAGE PROTOCOL Rest/Stress 1 Lexiscan Day Radiopharmaceutical Dose (mCi) Administration Site Administered by Rest: Tc-99m 10.5 IV Cathy Johnson HEAD BUTLER Sestamibi Stress:Tc-99m 32.6 IV Cathy Rowegle, HEAD BUTLER Sestamibi Rest: 05-Dec-2024 60 Discovery 630 Stress: 05-Dec-2024 30 Discovery 630 0.4mg Lexiscan. Images obtained in supine and prone position. SPECT RESULTS Technical Quality: Good Raw Data Analysis: Normal Image Corrections: No attenuation or motion correction applied Summed Stress Score: 1 Summed Rest Score: 1 Summed Difference Score: 0 PERFUSION FINDINGS SPECT images demonstrate homogeneous tracer distribution throughout the myocardium. FUNCTIONAL RESULTS (calculated via Gated SPECT) Stress Image LV EF (%): 86 Stress EDV (mL):56 TID: 0.96 Stress ESV (mL):8 FUNCTIONAL FINDINGS: There is normal left ventricular systolic function. IMPRESSIONS Myocardial perfusion imaging is normal. Obdulia Moreno MD (Electronically Signed) Final Date: 12 December 2024 19:29 S
[2024-12-05 08:44] VITALS: BP 172/78; PULSE 75
== END 2024-12-05 07:00 | disposition home or self-care (01) ==
PROVIDERS: PCP Nurse Practitioner Family; Visit Provider Internal Medicine
DX: R07.9 Chest pain, unspecified (principal); R06.02 Shortness of breath
CPT/HCPCS: 36415; 78452; 93017; 96374; A9500; J2785

== ENCOUNTER → 2024-12-24 09:25 | Outpatient (BNVA) | payer MEDICARE, SELFPAY | PROVIDERS: PCP Nurse Practitioner Family; Visit Provider Nurse Practitioner Family | DX: R53.83 Other fatigue (principal); I10 Essential (primary) hypertension; E11.9 Type 2 diabetes mellitus without complications | CPT/HCPCS: 80053; 80061; 83036; 85025 ==

== ENCOUNTER → 2024-12-25 13:18 | Outpatient (BNVA) | payer MEDICARE, SELFPAY | PROVIDERS: PCP Nurse Practitioner Family; Visit Provider Internal Medicine | DX: I35.0 Nonrheumatic aortic (valve) stenosis (principal); I10 Essential (primary) hypertension; E78.00 Pure hypercholesterolemia, unspecified | CPT/HCPCS: 99214 ==